=== PATIENT | male | born 1955 | race Caucasian/White ===

== ENCOUNTER 2019-06-13 17:06 | Inpatient (IN) ==
--- NOTE | 2019-06-13 17:16 | Emergency Department Note ---
Disposition Clinical Impression: Vomiting Qualifiers: Vomiting type: unspecified Vomiting Intractability: non-intractable Nausea presence: without nausea Qualified Code(s): R11.11 - Vomiting without nausea Disposition: Home, Self-Care Condition: Good Instructions: Acute Nausea and Vomiting (ED) Reasons to Return/Additional Instructions: Please follow up with your primary care provider at the next available appointment. I have provided information to the [place]'s residency clinic. Please return to the emergency department if you have any worsening of your symptoms including worsening of your nausea, shortness of breath, chest pain, numbness, weakness, tingling, changes in mentation or any other symptoms that may be concerning to you Referrals: [facility] [Outside] [facility] [Outside] Forms: ED Satisfaction Letter Time of Disposition: 18:05 General Adult HPI - General Stated complaint: vomiting Time Seen by Provider: 06/13/19 17:10 - Related Data Home Medications Medication Instructions Recorded Confirmed Aspirin 81 mg PO DAILY 05/31/15 06/17/17 Clopidogrel 75 mg PO DAILY 05/31/15 06/17/17 Lisinopril 2.5 mg PO DAILY 05/31/15 06/17/17 Centrum Silver Tablet 1 tab PO DAILY 09/17/16 06/17/17 Carvedilol [Coreg] 6.25 mg PO DAILY 06/12/17 06/17/17 Atorvastatin 11/22/17 Fluoxetine 11/22/17 HydrOXYzine 11/22/17 Nitroglycerin 11/22/17 Plavix 11/22/17 Vistaril 11/22/17 Previous Rx's Medication Instructions Recorded Sulfamethoxazole/Trimeth DS 1 each PO BID #14 tablet 01/01/19 [Bactrim DS] Benzonatate [Tessalon] 100 mg PO TID #15 capsule 02/02/19 Fluticasone Propionate Nasal 120 spray NS DAILY #1 bottle 02/02/19 [Flonase] Montelukast [Singulair] 10 mg PO DAILY #30 tablet 02/02/19 Allergies Allergy/AdvReac Type Severity Reaction Status Date / Time No Known Allergies Allergy Verified 02/02/19 20:36 Past Medical History - Past Medical History Medical history: Reports: aortic aneurysm, coronary artery disease, hypertension Surgical history: Reports: angioplasty/stent Psychiatric history: Reports: no psych history - Social History Smoking Status: Former smoker (40 pack year hx) Smokeless Tobacco Status: No Alcohol use: Reports: none Drug use: Reports: none Course Vital Signs Temperature 98 F 06/13/19 17:14 Pulse Rate 115 06/13/19 17:14 Respiratory Rate 18 06/13/19 17:14 Blood Pressure 126/66 06/13/19 17:14 O2 Sat by Pulse Oximetry 91 06/13/19 17:14 Temperature 98 F 06/13/19 17:14 Pulse Rate 115 06/13/19 17:14 Respiratory Rate 18 06/13/19 17:14 Blood Pressure 126/66 06/13/19 17:14 O2 Sat by Pulse Oximetry 91 06/13/19 17:14 Oxygen Delivery Oxygen Delivery Nasal Cannula Attestation Statement - Attestation Attestation: I reviewed the residents documentation and agree with the residents assessment and plan of care. I have personally had face to face time with the patient. (Brief History, Brief Exam, and MDM) I personally supervised and was present for the kaur/critical portions of the following procedures completed by the resident: (add procedures performed here). [id number] time provided Patient arrives by EMS. He states he had one episode of nausea and vomiting today. He does not appear in any acute distress on exam. I attest to supervising the resident physician's interpretation of the ECG
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
[2019-06-13 19:00] LABS: Basophils % 0.3 %; Eosinophils % 0.1 %; Hematocrit 49.3 % (37.5-50.1); Immature Granulocytes % 0.4 % (0-4); Lymphocytes # 0.3 K/mcL (0.6-4.6); Mean Corpuscular HGB Conc 32.5 g/dL (31.6-35.5); Mean Corpuscular Hemoglobin 29.5 pg (28.0-33.3); Mean Corpuscular Volume 90.8 fL (83.0-100.0); Mean Platelet Volume 9.5 fL (9.4-12.4); Monocytes # 0.2 K/mcL (0.0-1.3); Monocytes % 1.7 %; Neutrophils # 10.3 K/mcL (1.6-8.9); Platelet Count 233 K/mcL (140-400); Red Blood Count 5.43 M/mcL (4.19-5.50); Red Cell Distribution Width 12.9 % (11.5-14.5); Segmented Neutrophils % 94.5 %; White Blood Count 10.9 K/mcL (4.3-11.1)
[2019-06-13 19:26] LABS: Alanine Aminotransferase 100 Units/L (7-52); Albumin 3.9 g/dL (3.5-5.7); Albumin/Globulin Ratio 1.2 (1.1-2.2); Alkaline Phosphatase 145 Units/L (34-104); Aspartate Amino Transferase 152 Units/L (13-39); BUN/Creatinine Ratio 11 (6-26); Blood Urea Nitrogen 12 mg/dL (8-23); Calcium 8.9 mg/dL (8.6-10.3); Carbon Dioxide 26 mEq/L (23-29); Chloride 103 mEq/L (98-107); Globulin 3.2 g/dL (2.4-3.5); Glucose 136 mg/dL (70-105); Magnesium 1.8 mg/dL (1.6-2.6); Osmolality,Calculated 292 (280-300); Potassium 3.8 mEq/L (3.5-5.1); Sodium 140 mEq/L (136-145); Total Protein 7.1 g/dL (6.4-8.9); eGFR For African Americans > 60 (> 60); eGFR For Non-African Americans > 60 (> 60)
[2019-06-13 19:29] LABS: Troponin I < 0.03 ng/mL (< 0.04)
--- NOTE | 2019-06-13 20:15 | Emergency Department Note ---
Disposition Clinical Impression: V-tach Vomiting Qualifiers: Vomiting type: unspecified Vomiting Intractability: non-intractable Nausea presence: without nausea Qualified Code(s): R11.11 - Vomiting without nausea Disposition: Admitted As Inpatient Condition: Good Instructions: Acute Nausea and Vomiting (ED) Reasons to Return/Additional Instructions: Please follow up with your primary care provider at the next available appointment. I have provided information to the [place]'s residency clinic. Please return to the emergency department if you have any worsening of your symptoms including worsening of your nausea, shortness of breath, chest pain, numbness, weakness, tingling, changes in mentation or any other symptoms that may be concerning to you Referrals: [facility] Referral Line [Outside] [facility] [Outside] Forms: ED Satisfaction Letter Time of Disposition: 20:18 General Adult HPI - General Chief complaint: ED Nausea/Vomiting/Diarrhea Stated complaint: vomiting Time Seen by Provider: 06/13/19 17:10 Source: patient Mode of arrival: ambulatory Limitations: no limitations Nursing Notes Reviewed: Yes Vital Signs Reviewed: Yes - History of Present Illness HPI Narrative: This patient was signed out to me by Dr. Garcia and Dr. Donahue pending labs. For full history and physical please refer to their notes from earlier today. Pain Scale: 0 - Related Data Home Medications Medication Instructions Recorded Confirmed Aspirin 81 mg PO DAILY 05/31/15 06/17/17 Clopidogrel 75 mg PO DAILY 05/31/15 06/17/17 Lisinopril 2.5 mg PO DAILY 05/31/15 06/17/17 Centrum Silver Tablet 1 tab PO DAILY 09/17/16 06/17/17 Carvedilol [Coreg] 6.25 mg PO DAILY 06/12/17 06/17/17 Atorvastatin 11/22/17 Fluoxetine 11/22/17 HydrOXYzine 11/22/17 Nitroglycerin 11/22/17 Plavix 11/22/17 Vistaril 11/22/17 Previous Rx's Medication Instructions Recorded Sulfamethoxazole/Trimeth DS 1 each PO BID #14 tablet 01/01/19 [Bactrim DS] Benzonatate [Tessalon] 100 mg PO TID #15 capsule 02/02/19 Fluticasone Propionate Nasal 120 spray NS DAILY #1 bottle 02/02/19 [Flonase] Montelukast [Singulair] 10 mg PO DAILY #30 tablet 02/02/19 Allergies Allergy/AdvReac Type Severity Reaction Status Date / Time No Known Allergies Allergy Verified 02/02/19 20:36 Constitutional: Denies: fever Cardiovascular: Denies: chest pain Respiratory: Denies: dyspnea Gastrointestinal: Reports: vomiting. Denies: abdominal pain, nausea Genitourinary: Denies: urgency, dysuria, frequency Neurological: Denies: weakness, numbness, paresthesias Past Medical History - Past Medical History Medical history: Reports: aortic aneurysm, COPD, coronary artery disease, hypertension Surgical history: Reports: angioplasty/stent Psychiatric history: Reports: no psych history - Social History Smoking Status: Former smoker Smokeless Tobacco Status: No Alcohol use: Reports: none Drug use: Reports: none Physical Exam - General Limitations: no limitations General appearance: alert, in no apparent distress Course Vital Signs Temperature 98 F 06/13/19 17:14 Pulse Rate 115 06/13/19 17:14 Respiratory Rate 18 06/13/19 17:14 Blood Pressure 126/66 06/13/19 17:14 O2 Sat by Pulse Oximetry 91 06/13/19 17:14 Temperature 98 F 06/13/19 17:14 Pulse Rate 113 06/13/19 18:28 Respiratory Rate 28 06/13/19 18:28 Blood Pressure 122/76 06/13/19 18:28 O2 Sat by Pulse Oximetry 90 06/13/19 18:28 Oxygen Delivery Oxygen Delivery Nasal Cannula Medical Decision Making - MDM Narrative Medical decision making narrative: Patient was signed out to me pending labs for admission for telemetry. He is reported to have visited for one episode of vomiting and is currently feeling better but during his stay he had 2 separate episodes of V. tach of 4-5 beats. Patient had further lab work done which looks to be within normal limits at this time. Hospitalist has been paged for admission for telemetry and possible cardiology consult if the patient continues to have runs of V. tach. 2017 - Pt has been accepted for telemetry by Dr. Sparks - Medical Records Medical records reviewed: Yes I reviewed the patient's medical records. - Lab Data Lab results reviewed: Yes I reviewed the patient's lab results. Result diagrams: 06/13/19 18:46 06/13/19 18:46 Lab Results 06/13/19 06/13/19 06/13/19 Range/Units 18:46 18:46 18:46 WBC 10.9 D (4.3-11.1) K/mcL RBC 5.43 (4.19-5.50) M/mcL Hgb 16.0 (12.9-16.9) g/dL Hct 49.3 (37.5-50.1) % MCV 90.8 (83.0-100.0) fL MCH 29.5 (28.0-33.3) pg MCHC 32.5 (31.6-35.5) g/dL RDW 12.9 (11.5-14.5) % Plt Count 233 (140-400) K/mcL MPV 9.5 (9.4-12.4) fL Immature Gran % 0.4 (0-4) % Seg Neutrophils % 94.5 % Lymphocytes % 3.0 % Monocytes % 1.7 % Eosinophils % 0.1 % Basophils % 0.3 % Neutrophils # 10.3 H (1.6-8.9) K/mcL Lymphocytes # 0.3 L (0.6-4.6) K/mcL Monocytes # 0.2 (0.0-1.3) K/mcL Eosinophils # 0.0 (0.0-0.6) K/mcL Basophils # 0.0 (0.0-0.2) K/mcL Sodium 140 (136-145) mEq/L Potassium 3.8 (3.5-5.1) mEq/L Chloride 103 (98-107) mEq/L Carbon Dioxide 26 (23-29) mEq/L BUN 12 (8-23) mg/dL Creatinine 1.07 (0.70-1.30) mg/dL Est GFR ( Amer) > 60 (> 60) Est GFR (Non-Af Amer) > 60 (> 60) BUN/Creatinine Ratio 11 (6-26) Glucose 136 H (70-105) mg/dL Calculated Osmolality 292 (280-300) Calcium 8.9 (8.6-10.3) mg/dL Magnesium 1.8 (1.6-2.6) mg/dL Total Bilirubin 3.0 H (0.3-1.0) mg/dL AST 152 H (13-39) Units/L ALT 100 H (7-52) Units/L Alkaline Phosphatase 145 H (34-104) Units/L Troponin I < 0.03 (< 0.04) ng/mL B-Natriuretic Peptide 98 (Less than 100) pg/mL Serum Total Protein 7.1 (6.4-8.9) g/dL Albumin 3.9 (3.5-5.7) g/dL Globulin 3.2 (2.4-3.5) g/dL Albumin/Globulin Ratio 1.2 (1.1-2.2) - Radiology Data Radiology results reviewed: Yes I reviewed the patient's radiology results.
--- NOTE | 2019-06-13 20:22 | Emergency Department Note ---
Disposition Clinical Impression: V-tach Vomiting Qualifiers: Vomiting type: unspecified Vomiting Intractability: non-intractable Nausea presence: without nausea Qualified Code(s): R11.11 - Vomiting without nausea Disposition: Admitted As Inpatient Condition: Good Time of Disposition: 20:20 General Adult HPI - General Chief complaint: ED Nausea/Vomiting/Diarrhea Stated complaint: vomiting Time Seen by Provider: 06/13/19 17:10 Source: patient Mode of arrival: ambulatory Limitations: no limitations Nursing Notes Reviewed: Yes Vital Signs Reviewed: Yes - History of Present Illness Pain Scale: 0 - Related Data Home Medications Medication Instructions Recorded Confirmed Aspirin 81 mg PO DAILY 05/31/15 06/17/17 Clopidogrel 75 mg PO DAILY 05/31/15 06/17/17 Lisinopril 2.5 mg PO DAILY 05/31/15 06/17/17 Centrum Silver Tablet 1 tab PO DAILY 09/17/16 06/13/19 Carvedilol [Coreg] 6.25 mg PO DAILY 06/12/17 06/17/17 Atorvastatin 40 mg PO HS 11/22/17 06/13/19 Fluoxetine 11/22/17 HydrOXYzine 11/22/17 Vistaril 11/22/17 Previous Rx's Medication Instructions Recorded Sulfamethoxazole/Trimeth DS 1 each PO BID #14 tablet 01/01/19 [Bactrim DS] Montelukast [Singulair] 10 mg PO DAILY #30 tablet 02/02/19 Allergies Allergy/AdvReac Type Severity Reaction Status Date / Time No Known Allergies Allergy Verified 02/02/19 20:36 Constitutional: Denies: fever Cardiovascular: Denies: chest pain Respiratory: Denies: dyspnea Gastrointestinal: Reports: vomiting. Denies: abdominal pain, nausea Genitourinary: Denies: urgency, dysuria, frequency Neurological: Denies: weakness, numbness, paresthesias Past Medical History - Past Medical History Medical history: Reports: aortic aneurysm, COPD, coronary artery disease, hypert ension Surgical history: Reports: angioplasty/stent Psychiatric history: Reports: no psych history - Social History Smoking Status: Former smoker Smokeless Tobacco Status: No Alcohol use: Reports: none Drug use: Reports: none Physical Exam - General Limitations: no limitations General appearance: alert, in no apparent distress Course Vital Signs Temperature 98 F 06/13/19 17:14 Pulse Rate 115 06/13/19 17:14 Respiratory Rate 18 06/13/19 17:14 Blood Pressure 126/66 06/13/19 17:14 O2 Sat by Pulse Oximetry 91 06/13/19 17:14 Temperature 98 F 06/13/19 17:14 Pulse Rate 107 06/13/19 20:45 Respiratory Rate 22 06/13/19 20:45 Blood Pressure 106/68 06/13/19 20:45 O2 Sat by Pulse Oximetry 92 06/13/19 20:45 Oxygen Delivery Oxygen Delivery Nasal Cannula Medical Decision Making - Lab Data Result diagrams: 06/13/19 18:46 06/13/19 18:46 Lab Results 06/13/19 06/13/19 06/13/19 Range/Units 18:46 18:46 18:46 WBC 10.9 D (4.3-11.1) K/mcL RBC 5.43 (4.19-5.50) M/mcL Hgb 16.0 (12.9-16.9) g/dL Hct 49.3 (37.5-50.1) % MCV 90.8 (83.0-100.0) fL MCH 29.5 (28.0-33.3) pg MCHC 32.5 (31.6-35.5) g/dL RDW 12.9 (11.5-14.5) % Plt Count 233 (140-400) K/mcL MPV 9.5 (9.4-12.4) fL Immature Gran % 0.4 (0-4) % Seg Neutrophils % 94.5 % Lymphocytes % 3.0 % Monocytes % 1.7 % Eosinophils % 0.1 % Basophils % 0.3 % Neutrophils # 10.3 H (1.6-8.9) K/mcL Lymphocytes # 0.3 L (0.6-4.6) K/mcL Monocytes # 0.2 (0.0-1.3) K/mcL Eosinophils # 0.0 (0.0-0.6) K/mcL Basophils # 0.0 (0.0-0.2) K/mcL Sodium 140 (136-145) mEq/L Potassium 3.8 (3.5-5.1) mEq/L Chloride 103 (98-107) mEq/L Carbon Dioxide 26 (23-29) mEq/L BUN 12 (8-23) mg/dL Creatinine 1.07 (0.70-1.30) mg/dL Est GFR ( Amer) > 60 (> 60) Est GFR (Non-Af Amer) > 60 (> 60) BUN/Creatinine Ratio 11 (6-26) Glucose 136 H (70-105) mg/dL Calculated Osmolality 292 (280-300) Calcium 8.9 (8.6-10.3) mg/dL Magnesium 1.8 (1.6-2.6) mg/dL Total Bilirubin 3.0 H (0.3-1.0) mg/dL AST 152 H (13-39) Units/L ALT 100 H (7-52) Units/L Alkaline Phosphatase 145 H (34-104) Units/L Troponin I < 0.03 (< 0.04) ng/mL B-Natriuretic Peptide 98 (Less than 100) pg/mL Serum Total Protein 7.1 (6.4-8.9) g/dL Albumin 3.9 (3.5-5.7) g/dL Globulin 3.2 (2.4-3.5) g/dL Albumin/Globulin Ratio 1.2 (1.1-2.2) Attestation Statement - Attestation Attestation: I examined this patient and my medical decision-making was reviewed with the Resident Physician. I agree with the documented findings, disposition and treatment plan as described except to the extent set forth below. Patient signed out pending labs. Labs unremarkable. Magnesium is normal. Patient is in trigeminy on my evaluation. He is admitted to the hospital service for further cardiac workup of his NSVT.
[2019-06-13] MEDS ORDERED: Naloxone 0.4 MG/ML INJ IVP PRN (22:54)
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
[2019-06-14 05:32] LABS: Basophils % 0.3 %; Eosinophils % 0.1 %; Hematocrit 47.4 % (37.5-50.1); Hemoglobin 15.4 g/dL (12.9-16.9); Immature Granulocytes % 0.5 % (0-4); Lymphocytes % 7.8 %; Mean Corpuscular HGB Conc 32.5 g/dL (31.6-35.5); Mean Corpuscular Hemoglobin 30.4 pg (28.0-33.3); Mean Corpuscular Volume 93.7 fL (83.0-100.0); Mean Platelet Volume 9.9 fL (9.4-12.4); Monocytes # 1.1 K/mcL (0.0-1.3); Monocytes % 8.3 %; Neutrophils # 10.6 K/mcL (1.6-8.9); Platelet Count 225 K/mcL (140-400); Red Blood Count 5.06 M/mcL (4.19-5.50); Red Cell Distribution Width 13.2 % (11.5-14.5); White Blood Count 12.8 K/mcL (4.3-11.1)
[2019-06-14 05:53] LABS: Alanine Aminotransferase 105 Units/L (7-52); Albumin 3.7 g/dL (3.5-5.7); Albumin/Globulin Ratio 1.2 (1.1-2.2); Alkaline Phosphatase 133 Units/L (34-104); Aspartate Amino Transferase 125 Units/L (13-39); BUN/Creatinine Ratio 13 (6-26); Bilirubin,Total 4.1 mg/dL (0.3-1.0); Blood Urea Nitrogen 17 mg/dL (8-23); Carbon Dioxide 28 mEq/L (23-29); Chloride 103 mEq/L (98-107); Globulin 3.2 g/dL (2.4-3.5); Glucose 154 mg/dL (70-105); Magnesium 2.1 mg/dL (1.6-2.6); Osmolality,Calculated 291 (280-300); Potassium 4.3 mEq/L (3.5-5.1); Sodium 138 mEq/L (136-145); Total Protein 6.9 g/dL (6.4-8.9); eGFR For African Americans > 60 (> 60); eGFR For Non-African Americans 56 (> 60)
[2019-06-14 05:54] LABS: Troponin I < 0.03 ng/mL (< 0.04)
[2019-06-14 05:58] LABS: Albumin 3.7 g/dL (3.5-5.7); Albumin/Globulin Ratio 1.2 (1.1-2.2); Bilirubin,Direct 1.9 mg/dL (0.0-0.2); Bilirubin,Total 3.9 mg/dL (0.3-1.0); Globulin 3.2 g/dL (2.4-3.5); Total Protein 6.9 g/dL (6.4-8.9)
--- NOTE | 2019-06-14 09:26 | Electrocardiograph Report ---
[place] [id number] Test Date: 2019-06-14 Pat Name: Dilna Eldridge Department: 111 Room: 2N3 Gender: M Warehouse Team Member: : 1955 Requested By: José Miguel Sosa Order Number: [id number] Reading MD: Kenyn Elliott Measurements Intervals [place] Rate: 72 P: 62 UT: 211 QRS: -13 QRSD: 89 T: -5 QT: 376 QTc: 400 Interpretive Statements SINUS RHYTHM WITH FIRST DEGREE AV BLOCK SEPTAL MYOCARDIAL INFARCTION, OF INDETERMINATE AGE Electronically Signed On 06-14-2019 9:24:04 EDT by Kenny Elliott
[2019-06-14] MEDS: Aspirin 81 MG TAB.CHEW PO SCH (09:35)
--- NOTE | 2019-06-14 09:40 | Electrocardiograph Report ---
[place] [address] Test Date: 2019-06-13 Pat Name: Dilan Eldridge Department: EXAM29 Room: 2NE33 Gender: M Garden Labourer: : 1955 Requested By: Lee Garcia Order Number: [id number] Reading MD: Kenny Elliott Measurements Intervals [place] Rate: 115 P: -24 AZ: 160 QRS: -39 QRSD: 88 T: 49 QT: 355 QTc: 491 Interpretive Statements Sinus tachycardia Left axis deviation Borderline prolonged QT interval Electronically Signed On 06-14-2019 9:38:52 EDT by Kenny Elliott
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
[2019-06-14] MEDS ORDERED: Baclofen 10 MG TABLET PO PRN (11:06)
[2019-06-14 12:23] LABS: Hepatitis B Surface Antigen Nonreactive (Nonreactive)
[2019-06-14 12:52] LABS: Hepatitis B Core IgM Nonreactive (Nonreactive); Hepatitis C Virus Antibody Nonreactive (Nonreactive)
[2019-06-14 12:54] LABS: Hepatitis A Antibody IgM Nonreactive (Nonreactive)
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
[2019-06-14] MEDS ORDERED: hydrOXYzine pamoate 25 MG CAPSULE PO PRN (15:57)
[2019-06-14] MEDS: *HR* Heparin 5,000 UNIT/ML VIAL SQ SCH (17:18)
[2019-06-15 02:17] LABS: Basophils % 0.5 %; Eosinophils # 0.1 K/mcL (0.0-0.6); Eosinophils % 1.2 %; Hemoglobin 14.9 g/dL (12.9-16.9); Immature Granulocytes % 0.5 % (0-4); Lymphocytes # 1.7 K/mcL (0.6-4.6); Lymphocytes % 20.3 %; Mean Corpuscular HGB Conc 32.4 g/dL (31.6-35.5); Mean Corpuscular Hemoglobin 30.2 pg (28.0-33.3); Mean Corpuscular Volume 93.3 fL (83.0-100.0); Mean Platelet Volume 9.8 fL (9.4-12.4); Monocytes % 11.3 %; Neutrophils # 5.6 K/mcL (1.6-8.9); Platelet Count 203 K/mcL (140-400); Red Blood Count 4.93 M/mcL (4.19-5.50); Red Cell Distribution Width 13.1 % (11.5-14.5); Segmented Neutrophils % 66.2 %; White Blood Count 8.5 K/mcL (4.3-11.1)
[2019-06-15 02:40] LABS: Alanine Aminotransferase 89 Units/L (7-52); Albumin 3.5 g/dL (3.5-5.7); Albumin/Globulin Ratio 1.1 (1.1-2.2); Alkaline Phosphatase 112 Units/L (34-104); Aspartate Amino Transferase 88 Units/L (13-39); BUN/Creatinine Ratio 15 (6-26); Bilirubin,Total 4.2 mg/dL (0.3-1.0); Blood Urea Nitrogen 16 mg/dL (8-23); Calcium 8.4 mg/dL (8.6-10.3); Carbon Dioxide 24 mEq/L (23-29); Chloride 104 mEq/L (98-107); Globulin 3.2 g/dL (2.4-3.5); Glucose 146 mg/dL (70-105); Osmolality,Calculated 288 (280-300); Potassium 3.6 mEq/L (3.5-5.1); Sodium 137 mEq/L (136-145); Total Protein 6.7 g/dL (6.4-8.9); eGFR For African Americans > 60 (> 60); eGFR For Non-African Americans > 60 (> 60)
[2019-06-15] MEDS: *HR* Heparin 5,000 UNIT/ML VIAL SQ SCH ×2 (05:44→18:04)
[2019-06-15] MEDS ORDERED: Regadenoson 0.4 MG/5 ML SYRINGE IVP ONE (06:29)
[2019-06-15] MEDS: FLUoxetine HCl 10 MG CAPSULE PO SCH (09:14)
[2019-06-15] MEDS: Aspirin 81 MG TAB.CHEW PO SCH (09:18)
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
--- NOTE | 2019-06-15 09:36 | Event Note ---
Date of Encounter: 06/15/19 Time of Encounter: 09:00 - Cardiology Event Note Patient with more frequent and longer episodes of non-sustained VT. Discussed with , recommend LHC. Will cancel stress test. Risks versus benefits of LHC explained to patient who states understanding and agreeable to proceed. F urther recs pending LHC. K 3.6, replaced. Will continue to closely monitor. HAS-BLED Score - Score Medication usage predisposing to bleeding: Antiplatelet agents, NSAIDs, Anticoagulants Score: 1
[2019-06-15] MEDS ORDERED: Nitroglycerin 1,000 MCG/10 ML VIAL IV ONE (14:30)
[2019-06-15] MEDS ORDERED: 0.9 % Sodium Chloride 1,000 ML ONE ×2 (14:30→14:31)
[2019-06-15] MEDS ORDERED: Heparin 1,000 UNITS/500 mL 500 ML ONE (14:30)
[2019-06-15] MEDS ORDERED: *HR* Heparin 10,000 UNIT/10 ML VIAL ONE (14:30)
[2019-06-15] MEDS ORDERED: Iopamidol 125 ML INFUS..BTL ONE ×2 (14:31→16:39)
[2019-06-15] MEDS ORDERED: *HR* FentaNYL (PF) 100 MCG/2 ML VIAL ONE (16:12)
[2019-06-15] MEDS ORDERED: *HR* Midazolam HCl 2 MG/2 ML VIAL ONE ×2 (16:12→16:47)
--- NOTE | 2019-06-15 16:18 | Pre-Sedation Evaluation ---
Pre-sedation evaluation - Pre-sedation checklist Date of procedure: 06/15/19 Procedure: Left Heart Catheterization Recent Vitals: Last Vital Signs Temp 98.3 F 06/15/19 06:45 Pulse 78 06/15/19 11:23 Resp 14 06/15/19 05:35 BP 104/67 06/15/19 11:23 Pulse Ox 94 06/15/19 11:23 H&P (including ROS) documented in medical record: Yes Previous reaction to sedatives/anesthetics: No Dietary Status: NPO after Midnight Airway Assessment: Patient can open mouth completely, TMJ function normal, Micrognathia (under-bite, receding chin) absent, Neck with adequate range of motion Dentition: dentures removed Possible difficult airway: No ASA Classification *see protocol: CLASS II-Mild systemic disease Plan of Care: Pt appropriate candidate for procedure/moderate/conscious sedation, Risks/benefits of procedure/sedation discussed w/ patient/family Cardiac Registry (Cardio Only) - Functional Capacity Functional Capacity: < 4 METS - Clincal Frailty Scale Clinical Frailty Scale: Vulnerable
--- NOTE | 2019-06-15 17:24 | Invasive Diagnostic Lab Proc ---
Name: Dilan Eldridge Date of Study: 06/15/2019 Date: 1955 Ht: 76.0in Medical Record#: [id number] Age: 63 Wt: 310.85lb Gender: Male BSA: 2.67 Order #: [id number] BMI: 37.85 Physicians Procedure Physician: Ellen Louie MD, [facility] Referring MD: Referring MD: Staff Name Position Time In Autumn Vega RT (R) Monitor 04:40 PM Misha Mooreian RT (R) Scrub 04:40 PM Ricky Reilly RN Appliance Mechanic 04:40 PM Procedures Performed Procedure CORONARY ARTERY ANGIO S&I Pre-Procedure Checklist Informed consent is complete signed and on chart. H&P is on chart. ID band is on and ID verified with patient. Patient NPO for procedure The procedure was described for the patient and questions were answered. Blood Pressure: 110/76 ECG is on chart. Rhythm: NSR Plan of Care Patient will tolerate the procedure without complications. Adequate level of comfort will be maintained. Hemodynamics will remain stable Patient will recover from procedure without complications. Respiratory function will be maintained. Cardiac rhythm will remain stable. Patient temperature will be maintained. Patient and/or family have verbalized understanding of the procedure. Patient Education Chief Complaint/Reason for Test: Cardiac Cath Developmental Category: Adult (18-64 years) Developmentally Appropriate for Age: Yes Learning Barriers: None Education Needs: Procedure Education Method: Verbal Information Taught: Cardiac Cath Educational Evaluation: Able to repeat information Intravenous Access Time IV Size Location DC'd Fluid/Drip Rate Units RN 20g 1 /" Patent On Arrival Lt Antecubital 0.9NaCl ml/hr Allergies No Known Allergies Vital Signs Time BP (mmHg) HR (bpm) O2 Sat. RR (bpm) LOC 110 / 76 99 96 % 16 04:42 PM / % 4 = Oriented but drowsy 04:42 PM / % 4 = Oriented but drowsy 04:38 PM 132 / 87 76 94 % 18 04:43 PM 120 / 82 69 94 % 21 04:48 PM 122 / 85 81 94 % 20 04:53 PM 119 / 76 79 94 % 17 04:58 PM 110 / 77 74 94 % 16 Procedural Medications Time Medication Dose Units Method Given By 04:41 PM Versed 2 mg Intravenous Ricky Reilly RN 04:41 PM Fentanyl 50 mcg Intravenous Ricky Reilly RN 04:43 PM Benadryl 25 mg Intravenous Ricky Reilly RN 04:44 PM Lidocaine 2% 20 ml Subcutaneous Ellen Louie MD, [facility] 04:48 PM Versed 1 mg Intravenous Ricky Reilly RN 04:48 PM Fentanyl 25 mcg Intravenous Ricky Reilly RN ASA Classification: CLASS II- Mild systemic disease (i.e. well-controlled diabetes, hypertension, asthma, cigarette smoking) Juan Score Preprocedure Postprocedure Activity 2- Moves 4 extremities sustained head lift Activity 2- Moves 4 extremities sustained head lift Circulation 2- SBP +/= 20 points of pre-anesthetic level Circulation 2- SBP +/= 20 points of pre-anesthetic level Consciousness 2- Awake and alert oriented x 3 Consciousness 2- Awake and alert oriented x 3 O2 Saturation 2- Able to maintain O2 satruation of 92% on room air O2 Saturation 2- Able to maintain O2 satruation of 92% on room air Respiratory 2- Able to deep breathe and cough well Respiratory 2- Able to deep breathe and cough well Total Score 10 Total Score 10 Contrast Agent: Isovue Diagnostic Contrast: 63 ml Total Contrast: 63 ml Fluoro Dose: 48 mGy Procedure Log Time Note Enter By 04:37 PM Pt arrived to aquatic laborer 2 at 16:37 [email or web address] 04:37 PM Autumn Vega RT (R) Position: Monitor Time in: 16:37 [email or web address] 04:37 PM Jorge Moore RT (R) Position: Scrub Time in: 16:37 [email or web address] 04:37 PM Ricky Reilly RN Position: Appliance Mechanic Time in: 16:37 [email or web address] 04[facility] PM Vitals capture started with the following parameters, Patient=Adult, Interval=5 min, Initial Qpxzmllq=376 mmHg, Deflation Rate=3 mmHg, Cuff placed on Right Arm 04:37 PM CathStat 04:37 PM Recorded ECG: HR=77 Condition=Condition 1 04:38 PM HR=76 bpm, USYF=232/87 mmhg, SpO2=94.0 %, Resp=18 B/min, Comment=NSR 04:40 PM Patient charges- Angio tray pack, Navilyst 3mm J, Pulse Oximetry and ACIST tubing and transducer [email or web address] 04:40 PM Case Delayed No [email or web address] 04:40 PM Hair removed from procedure site in holding area using clippers. Bilateral groin prepped with Chloraprep by Autumn Vega (R), then patient was draped. Skin intact. [email or web address] 04:40 PM Physician arrived 16:40 [email or web address] 04:40 PM Meet and jakub completed [email or web address] 04:40 PM Sign in performed according to hospital policy. Informed consent was obtained. [email or web address] 04:40 PM Procedure start 16:40 [email or web address] 04:41 PM ASA Class CLASS II- Mild systemic disease (i.e. well-controlled diabetes, hypertension, asthma, cigarette smoking) [email or web address] 04:41 PM Time: 16:41 Oxygen on at 2 L/min per nasal cannula by Ricky Reilly RN [email or web address] 04:41 PM Time: 16:41 Versed 2 mg Intravenous Given by Ricky Reilly RN 04:41 PM Time: 16:41 Fentanyl 50 mcg Intravenous Given by Ricky Reilly RN 04:42 PM Time: 16:42 Patient comfortable and pain free: Yes [email or web address] 04:42 PM Time: 16:42LOC: 4 = Oriented but drowsy [email or web address] 04:43 PM Recorded ECG: HR=69 Condition=Condition 1 04:43 PM Reference ECG taken 04:43 PM HR=69 bpm, GKNH=228/82 mmhg, SpO2=94.0 %, Resp=21 B/min, Comment=NSR 04:43 PM Time out was performed according to hospital policy. Conscious sedation and anesthesia was achieved (see medication log with in this report above) [email or web address] 04:44 PM Time: 16:43 Benadryl 25 mg Intravenous Given by Ricky Reilly RN [email or web address] 04:44 PM Pressure channel 1 zeroed. 04:44 PM Time: 16:44 20 ml Lidocaine 2% to right groin Subcutaneous Given by Ellen Louie MD, [email or web address] 04:46 PM Access obtained by percutaneous puncture. 5Fr 10cm Terumo [place] sheath placed in right Femoral artery. [id number] [email or web address] 04:46 PM 0.035 145cm Navilyst 3mmJ wire [id number] [email or web address] 04:46 PM 5Fr FL 4 catheter inserted over the wire [facility] [email or web address] 04:47 PM LCA angiography performed in multiple views. [email or web address] 04:48 PM Time: 16:48 Versed 1 mg Intravenous Given by Ricky Reilly RN [email or web address] 04:48 PM Time: 16:48 Fentanyl 25 mcg Intravenous Given by Ricky Reilly RN [email or web address] 04:48 PM Recorded Pressure: Ao, HR=77, Condition=Condition 1 (Aorta) Ao 108/82/94 04:48 PM HR=81 bpm, BQTJ=396/85 mmhg, SpO2=94.0 %, Resp=20 B/min, Comment=NSR 04:49 PM Catheter removed [email or web address] 04:49 PM 5Fr FL 5 catheter inserted over the wire [id number] [email or web address] 04:49 PM LCA angiography performed in multiple views circumflex. [email or web address] 04:50 PM Recorded Pressure: Ao, HR=80, Condition=Condition 1 (Aorta) Ao 155/44/72 04:52 PM Catheter removed [email or web address] 04:52 PM 5Fr FR 4 catheter inserted over the wire DNC [email or web address] 04:52 PM RCA angiography performed in multiple views. [email or web address] 04:53 PM Catheter removed [email or web address] 04:53 PM HR=79 bpm, FCRH=335/76 mmhg, SpO2=94.0 %, Resp=17 B/min, Comment=NSR 04:53 PM 5Fr Pigtail catheter inserted over the wire DN [email or web address] 04:57 PM Time: 16:42 Patient comfortable and pain free: Yes [email or web address] 04:57 PM Time: 16:42LOC: 4 = Oriented but drowsy [email or web address] 04:57 PM Procedure completed at 16:57 06/15/2019 [email or web address] 04:58 PM HR=74 bpm, XYOU=320/77 mmhg, SpO2=94.0 %, Resp=16 B/min, Comment=NSR 04:58 PM Sign out completed: Radiation Dose 388.40 mGy, 47.9 Gy/cm2 Fluoro Time: 3.1 Isovue 370 - 200ml contrast 63 ml given by Ellen Louie MD, [facility]. Complications: None. The patient was discharged out of the hoisting laborer in stable condition. Sedation minutes 18. Cardiac Rehab Consult needed: No. Confirmed administered medications: Yes [email or web address] 04:59 PM Isovue 370 - 200ml,1 Bottle(s) used. [email or web address] 04:59 PM Arterial sheath pulled, Mynx closure device used and was Successful S/N. [email or web address] 04:59 PM Estimated Blood Loss: minimal [email or web address] 04:59 PM Post ECG NSR [email or web address] 04:59 PM Post Blood Pressure 110/77 [email or web address] 04:59 PM 16:59 Post Pulses Bilateral DP & PT 1+ [email or web address] 04:59 PM Information taught Cardiac Cath and Mynx [email or web address] 04:59 PM Education needs Procedure, Plan of Care, and Disease Process [email or web address] 04:59 PM Learning barriers :None [email or web address] 04:59 PM Education Methods Verbal [email or web address] 04:59 PM Education evaluation Able to repeat information [email or web address] 05:00 PM Site status No bleeding/ No Hematoma - Rt Groin as reported by Jorge Moore RT (R) at 16:59 [email or web address] 05:00 PM Opsite applied [email or web address] 05:04 PM Did you address JUAN MANUEL flow and Dominance? YesCoronary Dominance: right [email or web address] 05:05 PM Delay to floor No [email or web address] 05:05 PM Report given to Salty MCCONNELL Pt taken to E Room #33. 17:05 [email or web address] 05:05 PM Delay to floor No [email or web address] 05:05 PM Family placed in consult room. [email or web address] 05:05 PM Complications: None [email or web address] 05:06 PM Lesion found in Proximal RCA. Pre Stenosis: 100 Pre JUAN MANUEL Flow: 0: No Flow/No perfusion [email or web address] 05:06 PM Lesion found in Proximal LAD. Pre Stenosis: 30 Pre JUAN MANUEL Flow: 3: Complete and Brisk Flow/Perfusion [email or web address] 05:06 PM Lesion found in Mid LAD. Pre Stenosis: 25 Pre JUAN MANUEL Flow: 3: Complete and Brisk Flow/Perfusion [email or web address] 05:07 PM Lesion found in 1st Diagonal. Pre Stenosis: 30 Pre JUAN MANUEL Flow: 3: Complete and Brisk Flow/Perfusion [email or web address] 05:07 PM Lesion found in Proximal Circumflex. Pre Stenosis: 40 Pre JUAN MANUEL Flow: 3: Complete and Brisk Flow/Perfusion [email or web address] 05:07 PM Lesion found in Mid Circumflex. Pre Stenosis: 20 Pre JUAN MANUEL Flow: 3: Complete and Brisk Flow/Perfusion [email or web address] 05:07 PM Lesion found in Distal Circumflex. Pre Stenosis: 30 Pre JUAN MANUEL Flow: 3: Complete and Brisk Flow/Perfusion [email or web address] 05:08 PM Lesion found in 1st Marginal. Pre Stenosis: 20 Pre JUAN MANUEL Flow: 3: Complete and Brisk Flow/Perfusion [email or web address] 05:08 PM Lesion found in Ramus. Pre Stenosis: 30 Pre JUAN MANUEL Flow: 3: Complete and Brisk Flow/Perfusion [email or web address] 05:15 PM Patient out of room: 17:15 [email or web address] Complications Complication None None Hemodynamics Pressures Site Systolic/A Wave Diastolic/V Wave Mean AO 108 82 94 AO 155 44 72 Post Procedure Information Blood Pressure: 110/77 mmHg Rhythm: NSR Post procedural instructions were given Closure Device Time Device Success/Fail 06/15/2019 5:00:00 PM MynxGrip Successful Site Checks Time Location Status Staff Sheath In? Note 04:59 PM Rt Groin No bleeding/ No Hematoma Jorge Moore RT (R) Pulses Time Site Pre-Procedure Post-Procedure Note 06/15/2019 4:42:00 PM Bilateral DP & PT 1+ 06/15/2019 4:42:00 PM Bilateral radial 2+ 4:59:00 PM Bilateral DP & PT 1+ Updated by Autumn Vega, RT(R) on 06/15/2019 5:17:36 PM electronically signed on 06/15/2019 5:18:02 PM with status of Final
[2019-06-16] MEDS: *HR* Heparin 5,000 UNIT/ML VIAL SQ SCH ×2 (05:10→17:31)
[2019-06-16] MEDS: Aspirin 81 MG TAB.CHEW PO SCH (08:35)
[2019-06-16] MEDS: FLUoxetine HCl 10 MG CAPSULE PO SCH (08:36)
[2019-06-16] MEDS: Metoprolol XL (24 HR) Succ 50 MG TAB.ER.24H PO SCH ×2 (08:36→19:33)
[2019-06-16 09:05] LABS: Hematocrit 46.1 % (37.5-50.1); Hemoglobin 15.1 g/dL (12.9-16.9); Mean Corpuscular HGB Conc 32.8 g/dL (31.6-35.5); Mean Corpuscular Volume 91.7 fL (83.0-100.0); Platelet Count 218 K/mcL (140-400); Red Blood Count 5.03 M/mcL (4.19-5.50); Red Cell Distribution Width 13.2 % (11.5-14.5); White Blood Count 6.7 K/mcL (4.3-11.1)
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
[2019-06-16] MEDS ORDERED: Acetaminophen 325 MG TABLET PO PRN (09:15)
[2019-06-16 09:24] LABS: BUN/Creatinine Ratio 18 (6-26); Blood Urea Nitrogen 15 mg/dL (8-23); Calcium 8.8 mg/dL (8.6-10.3); Carbon Dioxide 24 mEq/L (23-29); Chloride 106 mEq/L (98-107); Glucose 149 mg/dL (70-105); Osmolality,Calculated 288 (280-300); Potassium 3.9 mEq/L (3.5-5.1); Sodium 137 mEq/L (136-145); eGFR For African Americans > 60 (> 60); eGFR For Non-African Americans > 60 (> 60)
[2019-06-16] MEDS: *HR* HYDROcodone/Acet 5/325 mg TABLET PO PRN ×2 (09:49→17:32)
--- NOTE | 2019-06-16 10:32 | Cardiology Progress Note ---
Date of Encounter: 06/16/19 Time of Encounter: 09:00 Assessment and Plan (1) Non-sustained ventricular tachycardia Current Visit: Yes Status: Acute Per cardiology: -NS VT noted overnight, longest 17 beats. Overnight, longest 3 beats. -Denies chest pain, palpitations, dizziness, lightheadedness, syncope, or near syncope. -Troponins negative. -K, Mg within normal limits. -TTE with LVEF 50-55%, mild concentric LVH, mild diastolic dsyfunction, moderate , mild AR, mild TR, no SWMA. -On BB. -S/P LHC yesterday without intervention. -Will stop coreg and switch to toprol for less BP effects. Discussed with , recommend continued telemetry monitoring. EP consult in am. -Will continue to monitor. -Keep Mg >2, K >4. (2) CAD (coronary artery disease) Current Visit: Yes Status: Chronic Per cardiology: -Known CAD s/p PCI. -[facility] 2013 with 30% prox LAD, 30% diagonal 2, 99% prox circ with MAURY, 50% mid circ with MAURY placed, OM 90%, 40% ramus, 100% prox RCA with collaterals. -On asa, statin, BB, plavix. -S/p [place] with RCA [employer], otherwise mild CAD. -Continue current medical therapy. Qualifiers: Coronary Disease-Associated Artery/Lesion type: [place] artery [place] vs. transplanted heart: [place] heart Associated angina: without angina Qualified Code(s): I25.10 - Atherosclerotic heart disease of [place] coronary artery without angina pectoris Discussion w patient/family: The assessment and plan as outlined above was discussed with the patient who expressed understanding and agreement. All questions were answered. Thank you for involving us in the care of your patient. Please call with any questions. Discussed and reviewed with . Subjective Principal diagnosis: Non-sustained VT Interval history: Patient denies complaints today. Denies chest pain. Denies palpitations, fluttering. Objective Vital Signs, Last 4 Hours Temp Pulse Resp BP Pulse Ox 06/16/19 07:48 97.2 F L 90 18 106/82 96 General: Conversant, No Apparent Distress HEENT: Atraumatic, Normocephaly, Mucus Membranes Moist Neck: No JVD, Normal carotid pulses Cardiac: Reg Rate and Rhythm, Normal S1 and S2, No Murmur Lungs: Normal Breath Sounds, No Wheeze, Rales, Rhonchi Neuro: Alert and responsive, No focal deficits noted Abdomen: Soft, Non-Tender Skin: No rashes noted on visualized skin, Other (Right groin access site with mild ecchymosis, no hematoma. ) Musculoskeletal: No Chest Wall Tenderness Extremities: No Clubbing, No Cyanosis, No Edema, Normal Pulses Results 06/16/19 08:45 06/16/19 08:45 Lab Results Active Medications Acetaminophen (Tylenol) 650 mg PO Q6HR PRN PRN Reason: Mild Pain/Fever Stop: 12/16/19 09:16 Hydrocodone Bitart/Acetaminophen ([place] 5-325 Mg) 1 tab PO Q6HR PRN PRN Reason: Moderate Pain Stop: 12/16/19 09:16 Last Admin: 06/16/19 09:49 Dose: 1 tab Documented by: Aspirin (Aspirin) 81 mg PO DAILY [facility] Stop: 12/14/19 09:01 Last Admin: 06/16/19 08:35 Dose: 81 mg Documented by: Atorvastatin Calcium (Lipitor) 40 mg PO HS [facility] Stop: 12/14/19 21:01 Last Admin: 06/15/19 19:33 Dose: 40 mg Documented by: Clopidogrel Bisulfate (Plavix) 75 mg PO DAILY [facility] Stop: 12/15/19 09:01 Last Admin: 06/16/19 08:36 Dose: 75 mg Documented by: Fluoxetine HCl (Prozac) 10 mg PO DAILY [facility] Stop: 12/15/19 09:01 Last Admin: 06/16/19 08:36 Dose: 10 mg Documented by: Heparin Sodium (Porcine) (Heparin) 5,000 unit SQ Q12HCO [facility]; Protocol Stop: 12/14/19 18:01 Last Admin: 06/16/19 05:10 Dose: 5,000 unit Documented by: Hydroxyzine Pamoate (Vistaril) 50 mg PO Q6HR PRN PRN Reason: Anxiety Stop: 12/14/19 15:58 Last Admin: 06/14/19 18:37 Dose: 50 mg Documented by: Metoprolol Succinate (Toprol Xl) 50 mg PO BID [facility] Stop: 12/16/19 09:01 Last Admin: 06/16/19 08:36 Dose: 50 mg Documented by: Naloxone HCl (Narcan) 0.4 mg IVP Q2MPRN PRN PRN Reason: SEE COMMENTS Stop: 12/13/19 22:55 Laboratory Tests 06/16/19 06/16/19 08:45 08:45 Hgb 15.1 Potassium 3.9 - Imaging and Cardiology Chest Xray: report reviewed Echo: report reviewed Cardiac cath: report reviewed - EKG Interpretation EKG results cardiology: other (Telemetry reviewed with average HR previous 12 hours noted to be 80, SR. PVCs, couplets, triplet noted. PACs noted.) Consult Discharge Plan - Plan Referrals: Ernesto Huffman MD [Primary Care Provider] -
[2019-06-16 15:41] LABS: INR 1.1; Prothrombin Time 12.7 Seconds (9.4-12.1)
[2019-06-17 05:25] LABS: Hematocrit 44.7 % (37.5-50.1); Hemoglobin 14.7 g/dL (12.9-16.9); Mean Corpuscular HGB Conc 32.9 g/dL (31.6-35.5); Mean Corpuscular Volume 91.2 fL (83.0-100.0); Mean Platelet Volume 10.5 fL (9.4-12.4); Platelet Count 205 K/mcL (140-400); Red Cell Distribution Width 12.9 % (11.5-14.5); White Blood Count 6.8 K/mcL (4.3-11.1)
[2019-06-17 05:31] LABS: Prothrombin Time 11.5 Seconds (9.4-12.1)
[2019-06-17] MEDS: *HR* Heparin 5,000 UNIT/ML VIAL SQ SCH (05:36)
[2019-06-17 05:42] LABS: Magnesium 1.9 mg/dL (1.6-2.6); Phosphorous 4.3 mg/dL (2.7-4.5)
[2019-06-17 05:43] LABS: Alanine Aminotransferase 61 Units/L (7-52); Albumin 3.5 g/dL (3.5-5.7); Alkaline Phosphatase 98 Units/L (34-104); Aspartate Amino Transferase 46 Units/L (13-39); BUN/Creatinine Ratio 18 (6-26); Blood Urea Nitrogen 14 mg/dL (8-23); Carbon Dioxide 24 mEq/L (23-29); Chloride 104 mEq/L (98-107); Globulin 3.4 g/dL (2.4-3.5); Glucose 97 mg/dL (70-105); Osmolality,Calculated 282 (280-300); Potassium 3.8 mEq/L (3.5-5.1); Sodium 136 mEq/L (136-145); Total Protein 6.9 g/dL (6.4-8.9); eGFR For African Americans > 60 (> 60); eGFR For Non-African Americans > 60 (> 60)
[2019-06-17] MEDS ORDERED: Magnesium Oxide 400 MG TABLET PO ONE (08:15)
--- NOTE | 2019-06-17 08:56 | Internal Med Progress Note ---
<Carina Flood E - Last Filed: 06/17/19 13:43> Hospitalist Progress Note - Encounter Date of Encounter: 06/17/19 Time of Encounter: 08:45 - Subjective Interval History: Mr. Eldridge 63-year-old male who initially presented after a few runs of V. tach. Patient seen and examined at bedside today. He states that he is feeling well today. He denies any chest pain, shortness of breath, abdominal pain, nausea, vomiting, diarrhea, weakness. - Exam Vitals: Temp Pulse Resp BP Pulse Ox 98.7 F 75 15 126/80 96 06/17/19 06:54 06/17/19 06:54 06/17/19 06:54 06/17/19 06:54 06/17/19 06:54 Exam: General: AAO 3, no acute distress, answers questions appropriately Head: normocephalic, atraumatic Eyes: NAHUM, no icterus Cardio: RRR, no murmurs, rubs, or gallops Respiratory: CTAB, no wheezing, rhonchi, rales Abd: normal bowel sounds, no guarding or rigidity Extremities: 1+ pedal edema, pulses equal bilaterally, warm Skin: warm, dry, intact - Assessment and Plan (1) V-tach Current Visit: Yes Status: Acute Assessment and Plan: Nonsustained V. tach noted on telemetry He denies any chest pain, palpitations, dizziness, syncope Troponins have been negative throughout stay Echocardiogram showed LVEF of 50-55%, mild concentric left ventricular hypertrophy, mild diastolic dysfunction, moderate aortic stenosis, mild aortic regurg, mild tricuspid regurg Patient is status post left heart catheter on June 15 without any intervention Coreg has been switched to Toprol We will continue patient on telemetry Cardiology would like magnesium potassium goals of greater than 2 and greater than 4 respectively EP referral today we appreciate recommendations (2) Elevated liver function tests Current Visit: Yes Status: Chronic Assessment and Plan: History of slightly elevated liver enzymes and past currently are decreasing We will continue to trend these Hepatitis panel negative Liver ultrasound shows hepatomegaly with heterogeneous echotexture may be related to liver cirrhosis or diffuse fatty infiltration, status post cholecystectomy with chronic ductal dilation Outpatient follow-up (3) Sleep apnea Current Visit: Yes Status: Chronic Assessment and Plan: Continue current BiPAP settings of 22/17 at night (4) Depression with anxiety Current Visit: Yes Status: Chronic Assessment and Plan: Continue home medications (5) Hypertension Current Visit: Yes Status: Chronic Assessment and Plan: Currently well controlled Continue home medications DVT Prophylaxis: subcutaneous heparin - Time Spent with Patient Total time spent is greater than 50% in coordination of care (as documented) at patient's floor/unit and/or counseling patient: Internal Medicine: Result - Labs CBC & Chem 7: 06/17/19 04:21 06/17/19 04:21 Labs: Short CBC 06/16/19 06/17/19 Range/Units 08:45 04:21 WBC 6.7 6.8 (4.3-11.1) K/mcL Hgb 15.1 14.7 (12.9-16.9) g/dL Hct 46.1 44.7 (37.5-50.1) % Plt Count 218 205 (140-400) K/mcL BMP 06/16/19 06/17/19 08:45 04:21 Sodium 137 136 Potassium 3.9 3.8 Chloride 106 104 Carbon Dioxide 24 24 BUN 15 14 Creatinine 0.82 0.78 Glucose 149 H 97 Calcium 8.8 9.0 Liver Function 06/17/19 Range/Units 04:21 Total Bilirubin 1.0 (0.3-1.0) mg/dL AST 46 H (13-39) Units/L ALT 61 H (7-52) Units/L Alkaline Phosphatase 98 (34-104) Units/L Albumin 3.5 (3.5-5.7) g/dL - ABG Interpretation ABG results: PT/INR, D-dimer PT 11.5 Seconds (9.4-12.1) 06/17/19 04:21 Consult Discharge Plan - Plan Referrals: Ernesto Huffman MD [Primary Care Provider] - <Garima Vasquez - Last Filed: 06/17/19 16:11> Hospitalist Progress Note - Encounter Date of Encounter: 06/17/19 - Exam Vitals: Temp Pulse Resp BP Pulse Ox 97.9 F 88 15 102/88 96 06/17/19 15:18 06/17/19 15:18 06/17/19 06:54 06/17/19 15:18 06/17/19 06:54 - Assessment and Plan (1) Elevated liver function tests Current Visit: Yes Status: Chronic (2) Sleep apnea Current Visit: Yes Status: Chronic (3) Depression with anxiety Current Visit: Yes Status: Chronic (4) Hypertension Current Visit: Yes Status: Chronic (5) Non-sustained ventricular tachycardia Current Visit: Yes Status: Acute (6) CAD (coronary artery disease) Current Visit: Yes Status: Chronic - Time Spent with Patient Total time spent is greater than 50% in coordination of care (as documented) at patient's floor/unit and/or counseling patient: Internal Medicine: Result - Labs CBC & Chem 7: 06/17/19 04:21 06/17/19 04:21 Labs: Short CBC 06/17/19 Range/Units 04:21 WBC 6.8 (4.3-11.1) K/mcL Hgb 14.7 (12.9-16.9) g/dL Hct 44.7 (37.5-50.1) % Plt Count 205 (140-400) K/mcL BMP 06/17/19 04:21 Sodium 136 Potassium 3.8 Chloride 104 Carbon Dioxide 24 BUN 14 Creatinine 0.78 Glucose 97 Calcium 9.0 Liver Function 06/17/19 Range/Units 04:21 Total Bilirubin 1.0 (0.3-1.0) mg/dL AST 46 H (13-39) Units/L ALT 61 H (7-52) Units/L Alkaline Phosphatase 98 (34-104) Units/L Albumin 3.5 (3.5-5.7) g/dL - ABG Interpretation ABG results: PT/INR, D-dimer PT 11.5 Seconds (9.4-12.1) 06/17/19 04:21 - Attending Attestation I saw evaluated and examined this patient and reviewed objective data including labs and my medical decision-making was reviewed with the Resident Physician/Medical Student. I agree with the documented findings, disposition and treatment plan as described except to any changes set forth below. We independently had [id number] contact with the patient. <Carina Flood - Last Filed: 06/17/19 13:43> (3) Sleep apnea Qualifiers: Sleep apnea type: unspecified type Qualified Code(s): G47.30 - Sleep apnea, unspecified (5) Hypertension Qualifiers: Hypertension type: unspecified Qualified Code(s): I10 - Essential (primary) hypertension <Garima Vasquez - Last Filed: 06/17/19 16:11> (2) Sleep apnea Qualifiers: Sleep apnea type: unspecified type Qualified Code(s): G47.30 - Sleep apnea, unspecified (4) Hypertension Qualifiers: Hypertension type: unspecified Qualified Code(s): I10 - Essential (primary) hypertension (6) CAD (coronary artery disease) Qualifiers: Coronary Disease-Associated Artery/Lesion type: [place] artery [place] vs. transplanted heart: [place] heart Associated angina: without angina Qualified Code(s): I25.10 - Atherosclerotic heart disease of [place] coronary artery without angina pectoris
[2019-06-17] MEDS: Metoprolol XL (24 HR) Succ 50 MG TAB.ER.24H PO SCH (10:15)
[2019-06-17] MEDS: FLUoxetine HCl 10 MG CAPSULE PO SCH (10:15)
[2019-06-17] MEDS: Aspirin 81 MG TAB.CHEW PO SCH (10:15)
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
[2019-06-17 15:19] VITALS: BP 102/88
--- NOTE | 2019-06-17 17:01 | Discharge Summary ---
- NOTES TO OUTPATIENT PROVIDER Notes to Outpatient Provider: Discahrged with monitor worker for Cardiology follow-up. Repeat LFTs in one week. Follow-up with GI as outpatient. Date of Encounter: 06/17/19 Time of Encounter: 16:57 - Discharge Diagnosis (1) Non-sustained ventricular tachycardia Priority: Secondary Status: Acute (2) Elevated liver function tests Priority: Secondary Status: Chronic (3) Sleep apnea Priority: Secondary Status: Chronic Qualifiers: Sleep apnea type: unspecified type Qualified Code(s): G47.30 - Sleep apnea, unspecified (4) Depression with anxiety Priority: Secondary Status: Chronic (5) Hypertension Priority: Secondary Status: Chronic Qualifiers: Hypertension type: unspecified Qualified Code(s): I10 - Essential (primary) hypertension (6) CAD (coronary artery disease) Priority: Secondary Status: Chronic Qualifiers: Coronary Disease-Associated Artery/Lesion type: viejas artery [place] vs. transplanted heart: viejas heart Associated angina: without angina Qualified Code(s): I25.10 - Atherosclerotic heart disease of viejas coronary artery without angina pectoris Hospital course: Mr. Eldridge is a 63 year old male with history of CAD with 3 stents, HTN, HPL, aortic aneurysm, COPD presented to ED initially for complaints of nausea and vomiting. He was having shakiness and stated he was dehydrated during that time. Patient had workup in ED. He had elevated LFTs which he has known history of in the past. He was about to be discharged but he was noted on telemetry monitoring to have 2 separate episodes of V tach. He was asymptomatic during those times. He was admitted for further monitoring of wide-complex tachycardia. Cardiology was consulted. An echocardiogram done showed LVEF 50- 55% with mild LV. He had a LHC on 06/15/19 without any intervention performed. Patient home Coreg was switched to metoprolol PO. Electrophysiology was consulted and plans for close outpatient follow-up with monitor worker on discharge. Patient discharged in stable condition. Will need to keep magnesium levels >2 and potassium >4. - Time Spent with Patient Total time spent providing and/or coordinating discharge services: - Discharge Medications Prescriptions: New Metoprolol XL (24 HR) Succ [Toprol Xl] 50 mg PO BID #60 tab.er.24h Continued Clopidogrel [Plavix] 75 mg PO DAILY Aspirin [Lo-Dose Aspirin EC] 81 mg PO DAILY Multivit-Min/FA/Lycopen/Lutein [Centrum Silver Men Tablet] 1 tab PO DAILY Atorvastatin [Lipitor] 40 mg PO HS HydrOXYzine Pamoate [Vistaril] 50 mg PO Q6H PRN PRN Reason: Anxiety FLUoxetine HCl [Fluoxetine HCl] 10 mg PO DAILY Baclofen [Lioresal] 10 mg PO TID PRN PRN Reason: Pain Nitroglycerin [Nitrostat] 0.4 mg SL Q15MIN PRN PRN Reason: Chest Pain OxyCODONE/APAP 5/325 [Percocet 5/325 MG] 1 tab PO Q8HR PRN PRN Reason: Pain Discontinued Lisinopril 2.5 mg PO DAILY Carvedilol [Coreg] 6.25 mg PO BID Home Medications: Aspirin [Lo-Dose Aspirin EC] 81 mg PO DAILY 05/31/15 [History] Clopidogrel [Plavix] 75 mg PO DAILY 05/31/15 [History] Multivit-Min/FA/Lycopen/Lutein [Centrum Silver Men Tablet] 1 tab PO DAILY 09/17/16 [History] Atorvastatin [Lipitor] 40 mg PO HS 11/22/17 [History] FLUoxetine HCl [Fluoxetine HCl] 10 mg PO DAILY 11/22/17 [History] HydrOXYzine Pamoate [Vistaril] 50 mg PO Q6H PRN 11/22/17 [History] Baclofen [Lioresal] 10 mg PO TID PRN 06/14/19 [History] Nitroglycerin [Nitrostat] 0.4 mg SL Q15MIN PRN 06/14/19 [History] OxyCODONE/APAP 5/325 [Percocet 5/325 MG] 1 tab PO Q8HR PRN 06/14/19 [History] Metoprolol XL (24 HR) Succ [Toprol Xl] 50 mg PO BID #60 tab.er.24h 06/17/19 [Rx] Allergies/Adverse Reactions: Allergy/AdvReac Type Severity Reaction Status Date / Time No Known Allergies Allergy Verified 06/14/19 15:33 Date of admission: 06/15/19 12:17 Primary care physician: Ernesto Huffman MD Consults: 06/14/19 07:35 Consult to Cardiology [CONS] Routine Comment: Consulting Provider: Cardiology Karen Reason for Consult: Runs of V-Tach Call Completed: No 06/17/19 08:57 Consult to Electrophysiology (EP) [CONS] Routine Consulting Provider: Electrophysiology Karen Reason for Consult: NSVT Call Completed: Yes Discharging clinician: Garima Vasquez - Constitutional Vitals: Temp Pulse Resp BP Pulse Ox 97.9 F 88 15 102/88 96 06/17/19 15:18 06/17/19 15:18 06/17/19 06:54 06/17/19 15:18 06/17/19 06:54 Exam: . - Head Head exam: Present: atraumatic, normocephalic - Eye Eye exam: Present: PERRL, conjuntiva pink, sclera anicteric Pupils: Present: PERRL - Neck Neck exam general surgery: Present: supple, trachea midline. Absent: lymphadenopathy - Respiratory Respiratory exam: Present: CTAB. Absent: accessory muscle use, rales, rhonchi, wheezes - Cardiovascular Cardiovascular exam: Present: RRR, +S1, +S2. Absent: diastolic murmur, gallop, rubs, systolic murmur - GI/Abdominal GI/Abdominal exam: Present: normal bowel sounds, soft, no peritoneal signs. Absent: distended, tenderness - Extremities Exam Extremities exam: Present: warm, radial pulses palpable and symmetrical. Absent: calf tenderness, cyanotic, pedal edema - Neurological Exam Neurological exam: Present: CN II-XII intact, oriented X3, no focal deficits. Absent: pronater drift, facial droop, speech deficit - Skin Skin exam: Present: dry, intact - Patient Status Disposition: Home, Self-Care Condition: Good Functional capacity at discharge: independent ambulation Overall status at discharge: patient is back to baseline - Discharge Instructions Follow Up With: Ernesto Huffman MD [Primary Care Provider] - - Diet and Activity Activity: return to work once cleared by your PCP/specialist Diet: advance to your usual diet
== END 2019-06-17 18:45 | disposition home or self-care (01) | DRG 287 ==
LOC: EMEROOARM 17:06 → 2NENU 17:06 → SUATTDRO 06-15 12:17
PROVIDERS: ADMIT Internal Medicine; ATTEND Student in an Organized Health Care Education/Training Program

== ENCOUNTER 2019-08-20 10:32 | Inpatient (IN) ==
[2019-08-20 12:23] LABS: Hematocrit 45.3 % (37.5-50.1); Hemoglobin 15.4 g/dL (12.9-16.9); Mean Corpuscular Hemoglobin 30.4 pg (28.0-33.3); Mean Corpuscular Volume 89.3 fL (83.0-100.0); Mean Platelet Volume 9.9 fL (9.4-12.4); Platelet Count 163 K/mcL (140-400); Red Blood Count 5.07 M/mcL (4.19-5.50); White Blood Count 12.8 K/mcL (4.3-11.1)
[2019-08-20 12:45] LABS: BUN/Creatinine Ratio 19 (6-26); Blood Urea Nitrogen 24 mg/dL (8-23); Calcium 8.5 mg/dL (8.6-10.3); Carbon Dioxide 24 mEq/L (23-29); Chloride 103 mEq/L (98-107); Glucose 137 mg/dL (70-105); Osmolality,Calculated 290 (280-300); Sodium 137 mEq/L (136-145); eGFR For African Americans > 60 (> 60); eGFR For Non-African Americans 56 (> 60)
[2019-08-20 12:48] LABS: Troponin I 0.06 ng/mL (< 0.04)
[2019-08-20] MEDS ORDERED: 0.9 % Sodium Chloride 500 ML IVC ONE (14:16)
[2019-08-20] MEDS ORDERED: *HR* HYDROcodone/Acet 5/325 mg TABLET PO PRN (14:18)
[2019-08-20] MEDS ORDERED: Naloxone 0.4 MG/ML INJ IVP PRN (14:18)
[2019-08-20] MEDS ORDERED: hydrOXYzine pamoate 25 MG CAPSULE PO PRN (14:21)
[2019-08-20 14:57] LABS: INR 1.7; Prothrombin Time 19.6 Seconds (9.4-12.1)
[2019-08-20 15:00] LABS: Activated Partial Thrombo Time 30.8 Seconds (26.0-36.0)
[2019-08-20] MEDS ORDERED: Amiodarone Premix 150 MG/100 ML BAG IVPB ONE (15:07)
[2019-08-20] MEDS: Metoprolol XL (24 HR) Succ 50 MG TAB.ER.24H PO SCH (15:42)
[2019-08-20] MEDS ORDERED: Amiodarone Premix 360 MG/200 ML BAG IVC ONE (15:47)
[2019-08-20] MEDS ORDERED: Ringers Solution, Lactated 1,000 ML IVC SCH (16:15)
[2019-08-20 16:20] LABS: Albumin 3.4 g/dL (3.5-5.7); Albumin/Globulin Ratio 1.1 (1.1-2.2); Bilirubin,Direct 4.2 mg/dL (0.0-0.2); Bilirubin,Total 6.2 mg/dL (0.3-1.0); Globulin 3.1 g/dL (2.4-3.5); Magnesium 1.8 mg/dL (1.6-2.6); Phosphorous 1.2 mg/dL (2.7-4.5); Total Protein 6.5 g/dL (6.4-8.9)
[2019-08-20] MEDS ORDERED: *HR* Rivaroxaban 10 MG TABLET PO SCH (17:30)
[2019-08-20] MEDS ORDERED: *HR* Heparin 5,000 UNIT/ML VIAL SQ SCH (18:00)
[2019-08-20] MEDS: Amiodarone Premix 360 MG/200 ML BAG IVC SCH (22:15)
[2019-08-21] MEDS: Piperacillin/Tazobactam 3.375 GM in 0.9 % Sodium Chloride Mini Bag 100 ML IVPB SCH ×3 (00:23→15:44)
[2019-08-21 00:58] LABS: Basophils % 0.2 %; Hemoglobin 14.9 g/dL (12.9-16.9); Immature Granulocytes % 1.6 % (0-4); Lymphocytes # 0.9 K/mcL (0.6-4.6); Lymphocytes % 8.6 %; Mean Corpuscular HGB Conc 33.1 g/dL (31.6-35.5); Mean Corpuscular Hemoglobin 30.1 pg (28.0-33.3); Mean Corpuscular Volume 90.9 fL (83.0-100.0); Mean Platelet Volume 10.2 fL (9.4-12.4); Monocytes # 0.9 K/mcL (0.0-1.3); Neutrophils # 8.9 K/mcL (1.6-8.9); Platelet Count 117 K/mcL (140-400); Red Blood Count 4.95 M/mcL (4.19-5.50); Red Cell Distribution Width 12.9 % (11.5-14.5); Segmented Neutrophils % 81.6 %; White Blood Count 10.9 K/mcL (4.3-11.1)
[2019-08-21 02:07] LABS: Alanine Aminotransferase 68 Units/L (7-52); Alkaline Phosphatase 86 Units/L (34-104); Aspartate Amino Transferase 56 Units/L (13-39); BUN/Creatinine Ratio 19 (6-26); Bilirubin,Total 5.2 mg/dL (0.3-1.0); Blood Urea Nitrogen 20 mg/dL (8-23); Calcium 8.1 mg/dL (8.6-10.3); Carbon Dioxide 21 mEq/L (23-29); Chloride 107 mEq/L (98-107); Glucose 121 mg/dL (70-105); Osmolality,Calculated 288 (280-300); Potassium 3.3 mEq/L (3.5-5.1); Sodium 137 mEq/L (136-145); eGFR For African Americans > 60 (> 60); eGFR For Non-African Americans > 60 (> 60)
[2019-08-21 03:48] LABS: Estimated Average Glucose 128 mg/dl
[2019-08-21] MEDS: FLUoxetine HCl 10 MG CAPSULE PO SCH (07:35)
[2019-08-21] MEDS: Metoprolol XL (24 HR) Succ 50 MG TAB.ER.24H PO SCH (07:55)
[2019-08-21] MEDS ORDERED: Aspirin Enteric Coated 81 MG Tablet PO SCH (09:00)
[2019-08-21] MEDS: Amiodarone Premix 360 MG/200 ML BAG IVC SCH ×2 (09:13→21:00)
[2019-08-21] MEDS: *HR* Amiodarone 200 MG TABLET PO SCH ×2 (09:27→21:00)
[2019-08-21] MEDS ORDERED: *HR* Heparin 5,000 UNIT/ML VIAL IVP ONE (11:40)
[2019-08-21] MEDS ORDERED: *HR* Heparin 5,000 UNIT/ML VIAL IVP PRN ×2 (11:40)
[2019-08-21] MEDS ORDERED: Levalbuterol Neb 0.63 MG/3 ML IH PRN (11:42)
[2019-08-21] MEDS ORDERED: D5% in Water 1,000 ML IVC PRN (11:47)
[2019-08-21] MEDS ORDERED: Dextrose Gel 15 GM/37.5 ML TUBE PO PRN ×2 (11:47)
[2019-08-21] MEDS ORDERED: *HR* Dextrose 50 % in Water (Syg) 50 ML SYRINGE IVP PRN (11:47)
[2019-08-21] MEDS ORDERED: D5% in Lactated Ringers 1,000 ML IVC SCH (12:00)
[2019-08-21] MEDS ORDERED: Insulin LISPRO 300 UNITS/3 ML VIAL SQ SCH (12:00)
[2019-08-21 13:25] LABS: Hematocrit 46.1 % (37.5-50.1); Hemoglobin 15.8 g/dL (12.9-16.9); Mean Corpuscular HGB Conc 34.3 g/dL (31.6-35.5); Mean Corpuscular Hemoglobin 30.3 pg (28.0-33.3); Mean Corpuscular Volume 88.5 fL (83.0-100.0); Platelet Count 133 K/mcL (140-400); Red Blood Count 5.21 M/mcL (4.19-5.50); Red Cell Distribution Width 13.1 % (11.5-14.5); White Blood Count 7.4 K/mcL (4.3-11.1)
[2019-08-21 13:32] LABS: Heparin anti-factor XA UFH 0.83 IU/mL (0.30-0.70)
[2019-08-21 13:33] LABS: INR 1.9; Prothrombin Time 21.9 Seconds (9.4-12.1)
[2019-08-21 14:11] LABS: Acinetobacter baumannii by PCR Not Detected (Not Detect); Candida albicans by PCR Not Detected (Not Detect); Candida glabrata by PCR Not Detected (Not Detect); Candida krusei by PCR Not Detected (Not Detect); Candida parapsilosis by PCR Not Detected (Not Detect); Candida tropicalis by PCR Not Detected (Not Detect); Enterobacter cloacae Cmplx PCR Not Detected (Not Detect); Enterobacteriaceae by PCR DETECTED (Not Detect); Enterococcus by PCR Not Detected (Not Detect); Escherichia coli by PCR Not Detected (Not Detect); Klebsiella oxytoca by PCR Not Detected (Not Detect); Klebsiella pneumoniae by PCR Not Detected (Not Detect); Proteus by PCR Not Detected (Not Detect); Pseudomonas aeruginosa by PCR Not Detected (Not Detect); Serratia marcescens by PCR Not Detected (Not Detect); Staphylococcus aureus by PCR Not Detected (Not Detect); Staphylococcus by PCR Not Detected (Not Detect); Streptococcus agalactiae(B)PCR Not Detected (Not Detect); Streptococcus by PCR Not Detected (Not Detect); Streptococcus pneumoniae PCR Not Detected (Not Detect); Streptococcus pyogenes (A) PCR Not Detected (Not Detect); blaKPC Carbapenem-Resist Gene Not Detected (Not Detect)
[2019-08-21] MEDS: Heparin 25,000 UNIT/250 ML D5W 25,000 UNIT/250 ML IV.SOLN IVC SCH (14:34)
[2019-08-21 14:40] LABS: Albumin 3.1 g/dL (3.5-5.7); Bilirubin,Direct 3.6 mg/dL (0.0-0.2); Bilirubin,Total 5.6 mg/dL (0.3-1.0); Globulin 3.2 g/dL (2.4-3.5); Total Protein 6.3 g/dL (6.4-8.9)
[2019-08-21] MEDS ORDERED: *HR* Rivaroxaban 10 MG TABLET PO SCH (17:00)
[2019-08-22] MEDS: Piperacillin/Tazobactam 3.375 GM in 0.9 % Sodium Chloride Mini Bag 100 ML IVPB SCH ×4 (00:33→23:31)
[2019-08-22] MEDS: Heparin 25,000 UNIT/250 ML D5W 25,000 UNIT/250 ML IV.SOLN IVC SCH ×2 (06:43→19:36)
[2019-08-22] MEDS: *HR* Amiodarone 200 MG TABLET PO SCH ×2 (07:55→19:36)
[2019-08-22] MEDS: FLUoxetine HCl 10 MG CAPSULE PO SCH (07:56)
[2019-08-22] MEDS: Metoprolol XL (24 HR) Succ 50 MG TAB.ER.24H PO SCH (07:56)
[2019-08-22 08:15] LABS: Acinetobacter baumannii by PCR Not Detected (Not Detect); Candida albicans by PCR Not Detected (Not Detect); Candida glabrata by PCR Not Detected (Not Detect); Candida krusei by PCR Not Detected (Not Detect); Candida parapsilosis by PCR Not Detected (Not Detect); Candida tropicalis by PCR Not Detected (Not Detect); Enterobacter cloacae Cmplx PCR Not Detected (Not Detect); Enterobacteriaceae by PCR Not Detected (Not Detect); Enterococcus by PCR Not Detected (Not Detect); Escherichia coli by PCR Not Detected (Not Detect); Klebsiella oxytoca by PCR Not Detected (Not Detect); Klebsiella pneumoniae by PCR Not Detected (Not Detect); Proteus by PCR Not Detected (Not Detect); Pseudomonas aeruginosa by PCR Not Detected (Not Detect); Serratia marcescens by PCR Not Detected (Not Detect); Staphylococcus aureus by PCR Not Detected (Not Detect); Staphylococcus by PCR Not Detected (Not Detect); Streptococcus agalactiae(B)PCR Not Detected (Not Detect); Streptococcus by PCR DETECTED (Not Detect); Streptococcus pneumoniae PCR Not Detected (Not Detect); Streptococcus pyogenes (A) PCR Not Detected (Not Detect)
[2019-08-22 08:56] LABS: Basophils % 0.6 %; Eosinophils # 0.1 K/mcL (0.0-0.6); Eosinophils % 0.8 %; Hematocrit 41.4 % (37.5-50.1); Immature Granulocytes % 0.7 % (0-4); Lymphocytes % 13.4 %; Mean Corpuscular HGB Conc 33.8 g/dL (31.6-35.5); Mean Corpuscular Volume 88.8 fL (83.0-100.0); Mean Platelet Volume 10.8 fL (9.4-12.4); Monocytes # 0.9 K/mcL (0.0-1.3); Monocytes % 12.3 %; Neutrophils # 5.2 K/mcL (1.6-8.9); Platelet Count 130 K/mcL (140-400); Red Blood Count 4.66 M/mcL (4.19-5.50); Red Cell Distribution Width 13.2 % (11.5-14.5); Segmented Neutrophils % 72.2 %; White Blood Count 7.2 K/mcL (4.3-11.1)
[2019-08-22 09:13] LABS: Alanine Aminotransferase 53 Units/L (7-52); Albumin 2.8 g/dL (3.5-5.7); Albumin/Globulin Ratio 0.9 (1.1-2.2); Alkaline Phosphatase 79 Units/L (34-104); Aspartate Amino Transferase 45 Units/L (13-39); BUN/Creatinine Ratio 19 (6-26); Bilirubin,Total 4.9 mg/dL (0.3-1.0); Blood Urea Nitrogen 17 mg/dL (8-23); Carbon Dioxide 25 mEq/L (23-29); Chloride 105 mEq/L (98-107); Glucose 102 mg/dL (70-105); Magnesium 2.1 mg/dL (1.6-2.6); Osmolality,Calculated 288 (280-300); Phosphorous 1.6 mg/dL (2.7-4.5); Potassium 3.3 mEq/L (3.5-5.1); Sodium 138 mEq/L (136-145); Total Protein 5.8 g/dL (6.4-8.9); eGFR For African Americans > 60 (> 60); eGFR For Non-African Americans > 60 (> 60)
[2019-08-22] MEDS ORDERED: Potassium Phosphate 44 MEQ in 0.9 % Sodium Chloride 250 ML IVPB ONE (09:38)
[2019-08-23] MEDS ORDERED: Aminoglycoside Consult 1 EACH MC ONE (07:34)
[2019-08-23 08:10] LABS: Alanine Aminotransferase 47 Units/L (7-52); Albumin 2.9 g/dL (3.5-5.7); Alkaline Phosphatase 99 Units/L (34-104); Aspartate Amino Transferase 43 Units/L (13-39); BUN/Creatinine Ratio 17 (6-26); Bilirubin,Total 3.1 mg/dL (0.3-1.0); Blood Urea Nitrogen 14 mg/dL (8-23); Carbon Dioxide 23 mEq/L (23-29); Chloride 105 mEq/L (98-107); Globulin 2.9 g/dL (2.4-3.5); Glucose 137 mg/dL (70-105); Osmolality,Calculated 287 (280-300); Potassium 3.2 mEq/L (3.5-5.1); Sodium 137 mEq/L (136-145); Total Protein 5.8 g/dL (6.4-8.9); eGFR For African Americans > 60 (> 60); eGFR For Non-African Americans > 60 (> 60)
[2019-08-23] MEDS: Piperacillin/Tazobactam 3.375 GM in 0.9 % Sodium Chloride Mini Bag 100 ML IVPB SCH ×2 (08:36→16:00)
[2019-08-23] MEDS: Metoprolol XL (24 HR) Succ 50 MG TAB.ER.24H PO SCH (08:37)
[2019-08-23] MEDS: *HR* Amiodarone 200 MG TABLET PO SCH ×2 (08:37→21:11)
[2019-08-23] MEDS: FLUoxetine HCl 10 MG CAPSULE PO SCH (08:37)
[2019-08-23] MEDS: Heparin 25,000 UNIT/250 ML D5W 25,000 UNIT/250 ML IV.SOLN IVC SCH (10:35)
[2019-08-23] MEDS: Nystatin POWDER 30 GM BOTTLE TP SCH ×2 (15:50→21:12)
[2019-08-24] MEDS: Heparin 25,000 UNIT/250 ML D5W 25,000 UNIT/250 ML IV.SOLN IVC SCH (00:41)
[2019-08-24] MEDS: Piperacillin/Tazobactam 3.375 GM in 0.9 % Sodium Chloride Mini Bag 100 ML IVPB SCH ×3 (00:43→17:27)
[2019-08-24 05:20] LABS: Basophils # 0.1 K/mcL (0.0-0.2); Eosinophils # 0.2 K/mcL (0.0-0.6); Eosinophils % 2.5 %; Immature Granulocytes % 1.7 % (0-4); Lymphocytes # 1.6 K/mcL (0.6-4.6); Lymphocytes % 19.8 %; Mean Corpuscular HGB Conc 34.1 g/dL (31.6-35.5); Mean Corpuscular Hemoglobin 29.9 pg (28.0-33.3); Mean Corpuscular Volume 87.6 fL (83.0-100.0); Mean Platelet Volume 10.6 fL (9.4-12.4); Monocytes # 0.8 K/mcL (0.0-1.3); Monocytes % 9.4 %; Neutrophils # 5.4 K/mcL (1.6-8.9); Platelet Count 143 K/mcL (140-400); Red Blood Count 4.68 M/mcL (4.19-5.50); Red Cell Distribution Width 13.4 % (11.5-14.5); Segmented Neutrophils % 65.6 %; White Blood Count 8.3 K/mcL (4.3-11.1)
[2019-08-24 05:43] LABS: BUN/Creatinine Ratio 12 (6-26); Blood Urea Nitrogen 10 mg/dL (8-23); Calcium 8.2 mg/dL (8.6-10.3); Carbon Dioxide 20 mEq/L (23-29); Chloride 109 mEq/L (98-107); Glucose 88 mg/dL (70-105); Magnesium 2.2 mg/dL (1.6-2.6); Osmolality,Calculated 286 (280-300); Phosphorous 2.4 mg/dL (2.7-4.5); Potassium 3.4 mEq/L (3.5-5.1); Sodium 139 mEq/L (136-145); eGFR For African Americans > 60 (> 60); eGFR For Non-African Americans > 60 (> 60)
[2019-08-24 05:47] LABS: Platelet Estimate Normal (Normal)
[2019-08-24] MEDS ORDERED: Potassium Phosphate 44 MEQ in 0.9 % Sodium Chloride 250 ML IVPB ONE (07:19)
[2019-08-24] MEDS: *HR* Amiodarone 200 MG TABLET PO SCH ×2 (08:50→21:59)
[2019-08-24] MEDS: FLUoxetine HCl 10 MG CAPSULE PO SCH (08:50)
[2019-08-24] MEDS: Metoprolol XL (24 HR) Succ 50 MG TAB.ER.24H PO SCH (08:50)
[2019-08-24] MEDS: Nystatin POWDER 30 GM BOTTLE TP SCH ×2 (08:52→22:00)
[2019-08-24 10:00] LABS: Alanine Aminotransferase 46 Units/L (7-52); Albumin/Globulin Ratio 0.9 (1.1-2.2); Alkaline Phosphatase 119 Units/L (34-104); Aspartate Amino Transferase 47 Units/L (13-39); Bilirubin,Direct 1.2 mg/dL (0.0-0.2); Bilirubin,Indirect 1.4 mg/dL (0.0-1.0); Bilirubin,Total 2.6 mg/dL (0.3-1.0); Globulin 3.2 g/dL (2.4-3.5); Total Protein 6.2 g/dL (6.4-8.9)
[2019-08-24] MEDS ORDERED: *HR* Rivaroxaban 10 MG TABLET PO SCH (17:00)
[2019-08-24] MEDS ORDERED: Nitroglycerin 0.4 MG TAB.SUBL SL PRN (17:49)
[2019-08-25] MEDS: Piperacillin/Tazobactam 3.375 GM in 0.9 % Sodium Chloride Mini Bag 100 ML IVPB SCH ×2 (00:15→09:08)
[2019-08-25 04:07] LABS: Basophils # 0.1 K/mcL (0.0-0.2); Basophils % 1.1 %; Eosinophils # 0.2 K/mcL (0.0-0.6); Eosinophils % 2.1 %; Hematocrit 42.8 % (37.5-50.1); Hemoglobin 14.6 g/dL (12.9-16.9); Immature Granulocytes % 3.5 % (0-4); Lymphocytes # 2.2 K/mcL (0.6-4.6); Lymphocytes % 23.2 %; Mean Corpuscular HGB Conc 34.1 g/dL (31.6-35.5); Mean Corpuscular Hemoglobin 29.7 pg (28.0-33.3); Mean Corpuscular Volume 87.2 fL (83.0-100.0); Mean Platelet Volume 10.2 fL (9.4-12.4); Monocytes % 10.2 %; Neutrophils # 5.6 K/mcL (1.6-8.9); Platelet Count 235 K/mcL (140-400); Red Blood Count 4.91 M/mcL (4.19-5.50); Red Cell Distribution Width 13.6 % (11.5-14.5); Segmented Neutrophils % 59.9 %; White Blood Count 9.3 K/mcL (4.3-11.1)
[2019-08-25 04:26] LABS: BUN/Creatinine Ratio 16 (6-26); Blood Urea Nitrogen 14 mg/dL (8-23); Calcium 8.5 mg/dL (8.6-10.3); Carbon Dioxide 21 mEq/L (23-29); Chloride 109 mEq/L (98-107); Glucose 93 mg/dL (70-105); Magnesium 2.2 mg/dL (1.6-2.6); Osmolality,Calculated 286 (280-300); Phosphorous 3.2 mg/dL (2.7-4.5); Potassium 3.5 mEq/L (3.5-5.1); Sodium 138 mEq/L (136-145); eGFR For African Americans > 60 (> 60); eGFR For Non-African Americans > 60 (> 60)
[2019-08-25 04:33] LABS: Platelet Estimate Normal (Normal)
[2019-08-25 06:15] LABS: Troponin I < 0.03 ng/mL (< 0.04)
[2019-08-25] MEDS ORDERED: Aspirin Enteric Coated 81 MG Tablet PO SCH (09:00)
[2019-08-25] MEDS ORDERED: Multivit/Ca/Min/Fe/FA 1 TAB TABLET PO SCH (09:00)
[2019-08-25] MEDS: Nystatin POWDER 30 GM BOTTLE TP SCH (09:11)
[2019-08-25] MEDS: Metoprolol XL (24 HR) Succ 50 MG TAB.ER.24H PO SCH (09:11)
[2019-08-25] MEDS: *HR* Amiodarone 200 MG TABLET PO SCH (09:11)
[2019-08-25] MEDS: FLUoxetine HCl 10 MG CAPSULE PO SCH (09:11)
[2019-08-25 10:22] LABS: BUN/Creatinine Ratio 16 (6-26); Blood Urea Nitrogen 14 mg/dL (8-23); Calcium 8.7 mg/dL (8.6-10.3); Carbon Dioxide 20 mEq/L (23-29); Chloride 108 mEq/L (98-107); Glucose 182 mg/dL (70-105); Magnesium 2.3 mg/dL (1.6-2.6); Osmolality,Calculated 289 (280-300); Potassium 4.3 mEq/L (3.5-5.1); Sodium 137 mEq/L (136-145); eGFR For African Americans > 60 (> 60); eGFR For Non-African Americans > 60 (> 60)
[2019-08-25 11:15] VITALS: BP 126/86
[2019-08-25] MEDS ORDERED: *HR* Warfarin 7.5 MG TABLET PO ONE (18:00)
[2019-08-25] MEDS ORDERED: Warfarin perPT PO PRN (18:00)
== END 2019-08-25 15:12 | disposition home or self-care (01) | DRG 871 ==
LOC: EMEROOARM 10:32 → 2NENU 10:32 → SUATTDRO 14:34 → 2NENU 15:15 → 2NNU 17:20 → SUATTDRO 08-21 14:41
PROVIDERS: ADMIT Internal Medicine; ATTEND Pharmacist

== ENCOUNTER 2020-06-18 21:17 | Inpatient (IN) ==
[2020-06-18 22:07] LABS: Basophils % 0.2 %; Hematocrit 35.6 % (37.5-50.1); Hemoglobin 10.5 g/dL (12.9-16.9); Immature Granulocytes % 0.6 % (0-4); Lymphocytes # 0.4 K/mcL (0.6-4.6); Lymphocytes % 1.8 %; Mean Corpuscular HGB Conc 29.5 g/dL (31.6-35.5); Mean Corpuscular Hemoglobin 22.2 pg (28.0-33.3); Mean Corpuscular Volume 75.3 fL (83.0-100.0); Mean Platelet Volume 9.3 fL (9.4-12.4); Monocytes # 1.3 K/mcL (0.0-1.3); Monocytes % 5.8 %; Platelet Count 348 K/mcL (140-400); Red Blood Count 4.73 M/mcL (4.19-5.50); Red Cell Distribution Width 15.4 % (11.5-14.5); Segmented Neutrophils % 91.6 %; White Blood Count 22.9 K/mcL (4.3-11.1)
[2020-06-18 22:15] LABS: BUN/Creatinine Ratio 16 (6-26); Blood Urea Nitrogen 19 mg/dL (8-23); Calcium 8.7 mg/dL (8.6-10.3); Carbon Dioxide 21 mEq/L (23-29); Chloride 105 mEq/L (98-107); Glucose 136 mg/dL (70-105); Osmolality,Calculated 288 (280-300); Sodium 137 mEq/L (136-145); Troponin I < 0.03 ng/mL (< 0.04); eGFR For African Americans > 60 (> 60); eGFR For Non-African Americans > 60 (> 60)
[2020-06-18] MEDS ORDERED: 0.9 % Sodium Chloride 1,000 ML IVC ONE (23:55)
[2020-06-19 00:58] LABS: Bilirubin,Urine Small (Negative); Blood,Urine Negative (Negative); Clarity,Urine Clear (Clear); Color,Urine Yellow (Yellow); Glucose,Urine (UA) Normal (Normal); Ketones,Urine Negative (Negative); Leukocyte Esterase,Urine Negative (Negative); Nitrite,Urine Negative (Negative); Protein,Urine Negative (Neg-Trace)
[2020-06-19 00:59] LABS: Bacteria,Urine Few per hpf (None-Few); Hyaline Casts,Urine Few per lpf (None Seen); Mucus,Urine Few per lpf (None-Few); RBC,Urine 0-3 per hpf (0-3); Squamous Epithelial Cell,Urine Few per hpf (None-Few); WBC,Urine 0-3 per hpf (0-3)
[2020-06-19 01:38] LABS: Adenovirus Not Detected (Not Detect); Coronavirus 229E Not Detected (Not Detect); Coronavirus HKU1 Not Detected (Not Detect); Coronavirus NL63 Not Detected (Not Detect); Coronavirus OC43 Not Detected (Not Detect)
[2020-06-19 01:39] LABS: Bordetella Pertussis Not Detected (Not Detect); Chlamydophila pneumoniae Not Detected (Not Detect); Human Metapneumovirus Not Detected (Not Detect); Human Rhinovirus/Enterovirus Not Detected (Not Detect); Influenza A Subtype 2009 H1 Not Detected (Not Detect); Influenza B Not Detected (Not Detect); Mycoplasma pneumoniae Not Detected (Not Detect); Parainfluenza Virus 1 Not Detected (Not Detect); Parainfluenza Virus 2 Not Detected (Not Detect); Parainfluenza Virus 3 Not Detected (Not Detect); Parainfluenza Virus 4 Not Detected (Not Detect); Respiratory Syncytial Virus Not Detected (Not Detect); SARS-CoV-2 Not Detected (Not Detect)
[2020-06-19] MEDS ORDERED: Naloxone 0.4 MG/ML INJ IVP PRN (02:45)
[2020-06-19] MEDS: 0.9 % Sodium Chloride 1,000 ML IVC SCH ×2 (03:32→17:18)
[2020-06-19] MEDS ORDERED: Perflutren Lipid Microsphere 1.3 ML in 0.9 % Sodium Chloride 8.7 ML IVP PRN (04:07)
[2020-06-19 05:17] LABS: Basophils % 0.2 %; Mean Platelet Volume 9.1 fL (9.4-12.4); Monocytes % 6.7 %
[2020-06-19 05:19] LABS: Eosinophils % 0.1 %; Hematocrit 32.4 % (37.5-50.1); Hemoglobin 9.7 g/dL (12.9-16.9); Immature Granulocytes % 0.6 % (0-4); Lymphocytes # 1.3 K/mcL (0.6-4.6); Lymphocytes % 7.2 %; Mean Corpuscular HGB Conc 29.9 g/dL (31.6-35.5); Mean Corpuscular Hemoglobin 22.7 pg (28.0-33.3); Mean Corpuscular Volume 75.7 fL (83.0-100.0); Monocytes # 1.2 K/mcL (0.0-1.3); Neutrophils # 15.2 K/mcL (1.6-8.9); Platelet Count 403 K/mcL (140-400); Red Blood Count 4.28 M/mcL (4.19-5.50); Red Cell Distribution Width 15.7 % (11.5-14.5); Segmented Neutrophils % 85.2 %; White Blood Count 17.8 K/mcL (4.3-11.1)
[2020-06-19 05:35] LABS: BUN/Creatinine Ratio 15 (6-26); Blood Urea Nitrogen 18 mg/dL (8-23); Calcium 8.5 mg/dL (8.6-10.3); Carbon Dioxide 23 mEq/L (23-29); Chloride 108 mEq/L (98-107); Glucose 107 mg/dL (70-105); Osmolality,Calculated 290 (280-300); Potassium 4.8 mEq/L (3.5-5.1); Sodium 139 mEq/L (136-145); eGFR For African Americans > 60 (> 60); eGFR For Non-African Americans > 60 (> 60)
[2020-06-19 05:36] LABS: Troponin I < 0.03 ng/mL (< 0.04)
[2020-06-19 05:45] LABS: Microcytosis Present (Not Present); Platelet Estimate Normal (Normal)
[2020-06-19] MEDS ORDERED: Baclofen 10 MG TABLET PO PRN (09:30)
[2020-06-19] MEDS ORDERED: Metoprolol XL (24 HR) Succ 50 MG TAB.ER.24H PO SCH (09:45)
[2020-06-19] MEDS: Lactobacillus 1 EACH CAP.SPRINK PO SCH (10:44)
[2020-06-19] MEDS: Aspirin Enteric Coated 81 MG Tablet PO SCH (10:44)
[2020-06-19] MEDS: *HR* Amiodarone 200 MG TABLET PO SCH ×2 (10:44→21:55)
[2020-06-19] MEDS: FLUoxetine HCl 10 MG CAPSULE PO SCH (10:44)
[2020-06-19] MEDS: Piperacillin/Tazobactam 3.375 GM in 0.9 % Sodium Chloride Mini Bag 100 ML IVPB SCH (14:02)
[2020-06-19] MEDS: Metoprolol XL (24 HR) Succ 50 MG TAB.ER.24H PO SCH ×2 (17:19→21:53)
[2020-06-20] MEDS: Piperacillin/Tazobactam 3.375 GM in 0.9 % Sodium Chloride Mini Bag 100 ML IVPB SCH ×4 (00:10→23:52)
[2020-06-20 07:02] LABS: Basophils % 0.4 %; Eosinophils # 0.2 K/mcL (0.0-0.6); Eosinophils % 2.1 %; Hematocrit 31.2 % (37.5-50.1); Immature Granulocytes % 0.6 % (0-4); Lymphocytes # 1.5 K/mcL (0.6-4.6); Lymphocytes % 18.3 %; Mean Corpuscular HGB Conc 28.8 g/dL (31.6-35.5); Mean Corpuscular Hemoglobin 22.2 pg (28.0-33.3); Mean Platelet Volume 9.2 fL (9.4-12.4); Monocytes # 0.9 K/mcL (0.0-1.3); Monocytes % 10.9 %; Neutrophils # 5.6 K/mcL (1.6-8.9); Platelet Count 352 K/mcL (140-400); Red Blood Count 4.05 M/mcL (4.19-5.50); Red Cell Distribution Width 15.5 % (11.5-14.5); Segmented Neutrophils % 67.7 %; White Blood Count 8.2 K/mcL (4.3-11.1)
[2020-06-20 07:17] LABS: BUN/Creatinine Ratio 15 (6-26); Blood Urea Nitrogen 15 mg/dL (8-23); Calcium 8.2 mg/dL (8.6-10.3); Carbon Dioxide 25 mEq/L (23-29); Chloride 109 mEq/L (98-107); Glucose 104 mg/dL (70-105); Magnesium 2.1 mg/dL (1.6-2.6); Osmolality,Calculated 289 (280-300); Phosphorous 3.2 mg/dL (2.7-4.5); Sodium 139 mEq/L (136-145); eGFR For African Americans > 60 (> 60); eGFR For Non-African Americans > 60 (> 60)
[2020-06-20 07:21] LABS: % Iron Saturation 2 % (20-55); Iron 10 mcg/dL (65-175); Transferrin 312 mg/dL (203-362)
[2020-06-20] MEDS ORDERED: Aspirin Enteric Coated 81 MG Tablet PO SCH (09:00)
[2020-06-20] MEDS: Metoprolol XL (24 HR) Succ 50 MG TAB.ER.24H PO SCH ×2 (09:03→21:53)
[2020-06-20] MEDS: Aspirin Enteric Coated 81 MG Tablet PO SCH (09:03)
[2020-06-20] MEDS: Multivit/Ca/Min/Fe/FA 1 TAB TABLET PO SCH (09:03)
[2020-06-20] MEDS: *HR* Amiodarone 200 MG TABLET PO SCH ×2 (09:04→21:53)
[2020-06-20] MEDS: FLUoxetine HCl 10 MG CAPSULE PO SCH (09:04)
[2020-06-20] MEDS: Lactobacillus 1 EACH CAP.SPRINK PO SCH (09:04)
[2020-06-20 09:49] LABS: Ferritin 13 ng/mL (20-250)
[2020-06-20 11:29] LABS: Alanine Aminotransferase 67 Units/L (7-52); Albumin 3.2 g/dL (3.5-5.7); Alkaline Phosphatase 154 Units/L (34-104); Aspartate Amino Transferase 59 Units/L (13-39); Bilirubin,Direct 0.2 mg/dL (0.0-0.2); Bilirubin,Indirect 0.4 mg/dL (0.0-1.0); Bilirubin,Total 0.6 mg/dL (0.3-1.0); Globulin 3.1 g/dL (2.4-3.5); Total Protein 6.3 g/dL (6.4-8.9)
[2020-06-20] MEDS ORDERED: Iron Sucrose Complex 400 MG in 0.9 % Sodium Chloride 250 ML IVPB ONE (13:07)
[2020-06-20] MEDS ORDERED: *HR* Rivaroxaban 10 MG TABLET PO SCH (17:00)
[2020-06-21 08:47] LABS: Basophils # 0.1 K/mcL (0.0-0.2); Basophils % 0.7 %; White Blood Count 8.4 K/mcL (4.3-11.1)
[2020-06-21 08:48] LABS: Eosinophils # 0.2 K/mcL (0.0-0.6); Eosinophils % 1.9 %; Hematocrit 34.3 % (37.5-50.1); Hemoglobin 9.9 g/dL (12.9-16.9); Immature Granulocytes % 0.8 % (0-4); Lymphocytes # 1.6 K/mcL (0.6-4.6); Lymphocytes % 19.3 %; Mean Corpuscular HGB Conc 28.9 g/dL (31.6-35.5); Mean Corpuscular Hemoglobin 22.2 pg (28.0-33.3); Mean Corpuscular Volume 77.1 fL (83.0-100.0); Mean Platelet Volume 9.1 fL (9.4-12.4); Monocytes # 0.7 K/mcL (0.0-1.3); Neutrophils # 5.8 K/mcL (1.6-8.9); Platelet Count 402 K/mcL (140-400); Red Blood Count 4.45 M/mcL (4.19-5.50); Red Cell Distribution Width 15.6 % (11.5-14.5); Segmented Neutrophils % 69.3 %
[2020-06-21] MEDS ORDERED: Iron Sucrose Complex 400 MG in 0.9 % Sodium Chloride 250 ML IVPB ONE (08:59)
[2020-06-21] MEDS: Piperacillin/Tazobactam 3.375 GM in 0.9 % Sodium Chloride Mini Bag 100 ML IVPB SCH (09:00)
[2020-06-21] MEDS: FLUoxetine HCl 10 MG CAPSULE PO SCH (09:00)
[2020-06-21] MEDS: Lactobacillus 1 EACH CAP.SPRINK PO SCH (09:00)
[2020-06-21] MEDS: Aspirin Enteric Coated 81 MG Tablet PO SCH (09:00)
[2020-06-21] MEDS: Metoprolol XL (24 HR) Succ 50 MG TAB.ER.24H PO SCH (09:00)
[2020-06-21] MEDS: Multivit/Ca/Min/Fe/FA 1 TAB TABLET PO SCH (09:00)
[2020-06-21] MEDS: *HR* Amiodarone 200 MG TABLET PO SCH (09:00)
[2020-06-21 09:04] LABS: Alanine Aminotransferase 80 Units/L (7-52); Albumin 3.5 g/dL (3.5-5.7); Alkaline Phosphatase 200 Units/L (34-104); Aspartate Amino Transferase 86 Units/L (13-39); BUN/Creatinine Ratio 11 (6-26); Bilirubin,Total 0.8 mg/dL (0.3-1.0); Blood Urea Nitrogen 11 mg/dL (8-23); Calcium 8.7 mg/dL (8.6-10.3); Carbon Dioxide 24 mEq/L (23-29); Chloride 108 mEq/L (98-107); Globulin 3.4 g/dL (2.4-3.5); Glucose 90 mg/dL (70-105); Magnesium 2.1 mg/dL (1.6-2.6); Osmolality,Calculated 285 (280-300); Phosphorous 3.3 mg/dL (2.7-4.5); Potassium 4.1 mEq/L (3.5-5.1); Sodium 138 mEq/L (136-145); Total Protein 6.9 g/dL (6.4-8.9); eGFR For African Americans > 60 (> 60); eGFR For Non-African Americans > 60 (> 60)
[2020-06-21 09:32] LABS: Large Platelets Present (Not Present)
[2020-06-21 09:33] LABS: Hypochromasia Present (Not Present); Ovalocytes 1+ (Not Present)
[2020-06-21 09:34] LABS: Microcytosis Present (Not Present)
[2020-06-21 10:36] VITALS: BP 118/75
== END 2020-06-21 15:25 | disposition home or self-care (01) | DRG 312 ==
LOC: EMEROOARM 21:17 → 3BNU 21:17 → SUATTDRO 06-19 01:42 → 3BNU 06-19 02:32
PROVIDERS: ADMIT Internal Medicine; ATTEND Internal Medicine